=== PATIENT | female | born 1995 | race Caucasian/White ===

== ENCOUNTER 2020-08-07 00:32 | Emergency (ER) | payer OTHER, SELFPAY ==
--- NOTE | 2020-08-07 | ECG_ITS ---
Test Reason : CP Blood Pressure : / mmHG Vent. Rate : 071 BPM Atrial Rate : 071 BPM P-R Int : 194 ms QRS Dur : 084 ms QT Int : 402 ms P-R-T Axes : 045 035 050 degrees QTc Int : 436 ms Normal sinus rhythm Normal ECG When compared to the previous EKG of No significant changes seen Referred By: Anastasia Munoz Electronically Signed By:Arnold Daigle
--- NOTE | ~2020-08-07 | XR_ITS ---
EXAMINATION: XR CHEST CLINICAL INFORMATION: Chest pain COMPARISON: None TECHNIQUE: 2 views of the chest were obtained. FINDINGS: The lungs are well expanded. There is no focal consolidation, edema, or effusion. No pneumothorax. The cardiomediastinal silhouette is within normal limits. No acute osseous abnormality. XR/XR chest 2V IMPRESSION: No acute pulmonary finding.
[2020-08-07 00:46] VITALS: BP 108/70; BP 117/70; PULSE 75; PULSE 90; RESP 16; TEMP 37.1; O2SAT 99; BMI 31.3
--- NOTE | 2020-08-07 01:04 | ED.CHESTPAIN ---
HPI - Chest Pain General Chief Complaint: Chest Pain <TONYA Ruff Last Filed: 08/07/20 02:24> Stated Complaint: chest pain <TONYA Ruff Last Filed: 08/07/20 02:24> Time Seen by Provider: 08/07/20 00:50 <TONYA Ruff Last Filed: 08/07/20 02:24> Source: patient <TONYA Ruff Last Filed: 08/07/20 02:24> Mode of arrival: EMS <TONYA Ruff Last Filed: 08/07/20 02:24> Limitations: no limitations <TONYA Ruff Last Filed: 08/07/20 02:24> History of Present Illness HPI narrative: Patient is a 25-year-old female with no significant past medical history who called [employer] after having some chest pains, she was given 325 aspirin and sublingual nitro with no relief. She states she did cardio, abdominal and leg workout at the gym, left the gym around 17:30 and went to [facility] for dinner, had a salad, denies eating anything spicy or at of her normal habits, went home and started having chest pain. She describes the pain as a burning, states it does not radiate states that is constant but does fluctuate from a 6/10 to a 9/10. She states it is worse with movement but did not take anything to try to make it better. She states that similar to when you swallow food and it gets stuck in your chest . She denies an increase in anxiety over the past few days. She denies any shortness of breath, abdominal pain except for the pain from doing her abdominal workout, fevers, nausea vomiting or diarrhea. <TONYA Ruff Last Filed: 08/07/20 02:24> Related Data Allergies/Adverse Reactions: Allergies Allergy/AdvReac Type Severity Reaction Status Date / Time No Known Allergies Allergy Unverified 01/02/20 17:26 <TONYA Ruff Last Filed: 08/07/20 02:24> Review of Systems Review of Systems: Yes all other systems are reviewed and are negative <Deena Pitt PA-C - Last Filed: 08/07/20 02:24> [facility] Social History Social History: Social History Advance Directives: No <Deena Pitt PA-C - Last Filed: 08/07/20 02:24> Physical Exam Vital Signs: Vital Signs: Last Vital Signs Temp 98.7 F 08/07/20 00:46 Pulse 75 08/07/20 00:46 Resp 16 08/07/20 00:46 BP 108/70 08/07/20 00:46 Pulse Ox 99 08/07/20 00:46 Body Mass Index 31.3 <Deena Pitt PA-C - Last Filed: 08/07/20 02:24> Vital Signs: Last Vital Signs Temp 98.7 F 08/07/20 00:46 Pulse 75 08/07/20 00:46 Resp 16 08/07/20 00:46 BP 108/70 08/07/20 00:46 Pulse Ox 99 08/07/20 00:46 Body Mass Index 31.3 <Anastasia Munoz MD - Last Filed: 08/07/20 03:44> Const: General: cooperative, healthy appearing, comfortable and no acute distress <Deena Pitt PA-C - Last Filed: 08/07/20 02:24> Nutritional Appearance: average body habitus <Deena Pitt PA-C - Last Filed: 08/07/20 02:24> Orientation/consciousness: patient oriented x3 <Deena Pitt PA-C - Last Filed: 08/07/20 02:24> HENMT: Head: Yes normal to inspection <Deena Pitt PA-C - Last Filed: 08/07/20 02:24> Eyes: General: appearance normal, both eyes and all related structures <Deena Pitt PA-C - Last Filed: 08/07/20 02:24> Neck: Neck: Yes normal visual inspection, Yes full ROM, Yes trachea midline and Yes supple <Deena Pitt PA-C - Last Filed: 08/07/20 02:24> Chest: Chest palpation & inspection: normal inspection of the chest and normal palpation of entire chest wall <Deena Pitt PA-C - Last Filed: 08/07/20 02:24> Resp: Effort & Inspection: normal respiratory effort and able to speak in complete sentences <Deena Pitt PA-C Ree Last Filed: 08/07/20 02:24> Auscultation: clear to auscultation bilaterally <Deena Pitt PA-C Ree Last Filed: 08/07/20 02:24> Cardio: Rate: regular rate <Deena Pitt PA-C Ree Last Filed: 08/07/20 02:24> Rhythm: regular rhythm <Deena Pitt PA-C Ree Last Filed: 08/07/20 02:24> Heart sounds: normal S1 and S2 <Deena Pitt PA-C Ree Last Filed: 08/07/20 02:24> GI: Inspection: Yes normal to inspection <Deena Pitt PA-C Ree Last Filed: 08/07/20 02:24> Palpation (GI): Soft to palpation and Tenderness to palpation present (GI) in the epigastrum <Deena Pitt PA-C Ree Last Filed: 08/07/20 02:24> Skin: General skin exam: no rashes or lesions noted <Deena Pitt PA-C Ree Last Filed: 08/07/20 02:24> Neuro: General: patient oriented x3 <Deena Pitt PA-C Ree Last Filed: 08/07/20 02:24> Course Course Course Narrative: Patient is a 25 old female with no significant past medical history who presents with a few hours of chest pain after doing a cardio, leg and abdominal workout this evening then going to get some dinner. Physical exam revealed Chest pain is not reproducible, EKG is NSR. Will get labs, chest x-ray give a GI cocktail and reassess. <Deena Pitt PA-C Ree Last Filed: 08/07/20 02:24> Patient re-evaluated at bedside and she endorses that the pain is still there somewhat, however it has significantly improved after receiving the GI cocktail. On review of family history and history of presentation low clinical suspicion for pneumonia, cardiac or hypercoagulable etiologies. All investigations were reviewed without acute findings. All results and findings discussed with the patient at bedside and she was discharged to home in stable condition. <Anastasia Munoz MD - Last Filed: 08/07/20 03:44> Reevaluation(s) Reevaluation #1: signing out pt to Dr Munoz <Deena Pitt PA-C - Last Filed: 08/07/20 02:24> Time: 02:24 <Deena Pitt PA-C - Last Filed: 08/07/20 02:24> MDM - Chest Pain Lab Data Result diagrams: : 08/07/20 02:02 08/07/20 02:02 <Deena Pitt PA-C - Last Filed: 08/07/20 02:24> Labs: Lab Results 08/07/20 08/07/20 08/07/20 Range/Units 02:02 02:02 Unknown WBC 7.8 (4.8-10.8) X10*3/uL RBC 4.26 (4.20-5.50) X10*6/uL Hgb 12.5 (12.0-16.0) g/dl Hct 37.4 (37-47) % MCV 87.8 (80-98) fL MCH 29.3 (27.0-33.0) pg MCHC 33.4 (31.0-35.0) g/dl RDW 12.3 (11.0-16.0) % Plt Count 316 (160-400) X10*3/uL MPV 9.0 L (9.4-12.3) fL Immature Gran % (Auto) 0.1 (0.0-0.4) % Neut % (Auto) 36.3 L (45-73) % Lymph % (Auto) 51.6 H (20-40) % [place] % (Auto) 6.8 (2-11) % Eos % (Auto) 4.1 H (0-4) % Baso % (Auto) 1.1 (0-2) % Lymph # (Auto) 4.0 (1.2-4.9) X10*3/uL [place] # (Auto) 0.5 (0.1-1.2) X10*3/uL Eos # (Auto) 0.3 (0.0-0.4) X10*3/uL Baso # (Auto) 0.1 (0.0-0.2) X10*3/uL Abs Immat Gran (auto) 0.01 (0.00-0.03) X10*3/uL Absolute Neuts (auto) 2.8 (2.0-8.3) X10*3/uL Absolute Nucleated RBC 0.000 (0.0-0.012) X10*3/uL Nucleated RBC % (auto) 0.0 (0.0-0.2) /100WBC Sodium 139 (135-145) mmol/L Potassium 3.7 (3.3-5.1) mmol/L Chloride 107 (96-108) mmol/L Carbon Dioxide 22 (22-29) mmol/L Anion Gap 14 (12-20) BUN 13 (9-16) mg/dL Creatinine 0.70 (0.5-1.4) mg/dL Estim Creat Clear Calc 105.7 Estimated GFR > 60 Random Glucose 86 (60-115) mg/dL Calcium 9.4 (8.4-10.2) mg/dL Total Bilirubin 0.6 (0.0-1.0) mg/dL Direct Bilirubin 0.2 (0.0-0.5) mg/dL AST 27 (5-31) U/L ALT 16 (0-31) U/L Alkaline Phosphatase 44 (39-117) U/L Total Protein 6.7 (6.5-8.0) g/dL Albumin 4.4 (3.5-5.0) g/dL Lipase 25 (8-78) U/L Urine Test NEGATIVE (NEGATIVE) <Deena Pitt PA-C - Last Filed: 08/07/20 02:24> Lab Results 08/07/20 08/07/20 08/07/20 Range/Units 02:02 02:02 Unknown WBC 7.8 (4.8-10.8) X10*3/uL RBC 4.26 (4.20-5.50) X10*6/uL Hgb 12.5 (12.0-16.0) g/dl Hct 37.4 (37-47) % MCV 87.8 (80-98) fL MCH 29.3 (27.0-33.0) pg MCHC 33.4 (31.0-35.0) g/dl RDW 12.3 (11.0-16.0) % Plt Count 316 (160-400) X10*3/uL MPV 9.0 L (9.4-12.3) fL Immature Gran % (Auto) 0.1 (0.0-0.4) % Neut % (Auto) 36.3 L (45-73) % Lymph % (Auto) 51.6 H (20-40) % [place] % (Auto) 6.8 (2-11) % Eos % (Auto) 4.1 H (0-4) % Baso % (Auto) 1.1 (0-2) % Lymph # (Auto) 4.0 (1.2-4.9) X10*3/uL [place] # (Auto) 0.5 (0.1-1.2) X10*3/uL Eos # (Auto) 0.3 (0.0-0.4) X10*3/uL Baso # (Auto) 0.1 (0.0-0.2) X10*3/uL Abs Immat Gran (auto) 0.01 (0.00-0.03) X10*3/uL Absolute Neuts (auto) 2.8 (2.0-8.3) X10*3/uL Absolute Nucleated RBC 0.000 (0.0-0.012) X10*3/uL Nucleated RBC % (auto) 0.0 (0.0-0.2) /100WBC Sodium 139 (135-145) mmol/L Potassium 3.7 (3.3-5.1) mmol/L Chloride 107 (96-108) mmol/L Carbon Dioxide 22 (22-29) mmol/L Anion Gap 14 (12-20) BUN 13 (9-16) mg/dL Creatinine 0.70 (0.5-1.4) mg/dL Estim Creat Clear Calc 105.7 Estimated GFR > 60 Random Glucose 86 (60-115) mg/dL Calcium 9.4 (8.4-10.2) mg/dL Total Bilirubin 0.6 (0.0-1.0) mg/dL Direct Bilirubin 0.2 (0.0-0.5) mg/dL AST 27 (5-31) U/L ALT 16 (0-31) U/L Alkaline Phosphatase 44 (39-117) U/L Total Protein 6.7 (6.5-8.0) g/dL Albumin 4.4 (3.5-5.0) g/dL Lipase 25 (8-78) U/L Urine Test NEGATIVE (NEGATIVE) <Anastasia Munoz MD - Last Filed: 08/07/20 03:44> Imaging Data Chest x-ray: Attestation: I personally reviewed and interpreted this imaging study as follows: <Deena Pitt PA-C - Last Filed: 08/07/20 02:24> My impression: No acute pulmonary finding. <Deena Pitt PA-C - Last Filed: 08/07/20 02:24> Radiologist's impression: [address] [id number] ReportSigned Patient: Mera MistryMR#: [id number]: [id number]:[id number]/Sex: 25 / FADM Date: 08/07/20Loc: HO.EDAttending Dr: Ordering Physician: Deena Pitt PA-C Date of Service: 08/07/20 Procedure(s): XR chest 2V Accession Number(s): [id number] cc: Deena Pitt PA-C~ EXAMINATION: XR CHEST CLINICAL INFORMATION: Chest pain COMPARISON: None TECHNIQUE: 2 views of the chest were obtained. FINDINGS: The lungs are well expanded. There is no focal consolidation, edema, or effusion. No pneumothorax. The cardiomediastinal silhouette is within normal limits. No acute osseous abnormality. XR/XR chest 2V IMPRESSION: No acute pulmonary finding. Dictated By:Rony Desouza MDSigned By:<Electronically signed by Rony Desouza MD in OV>08/07/20 0124 DD/ 0109TD/TT: Criminal Investigative Agent: SUSHILA <Deena Pitt PA-C - Last Filed: 08/07/20 02:24> Discharge Plan Discharge Clinical Impression: Atypical chest pain <Deena Pitt PA-C - Last Filed: 08/07/20 02:24> Patient Disposition: Home, Self-Care <Deena Pitt PA-C - Last Filed: 08/07/20 02:24> Instructions: Chest Pain (ED), Gastroesophageal Reflux Disease (ED), Diet for Stomach Ulcers and Gastritis (ED) <Deena Pitt PA-C - Last Filed: 08/07/20 02:24> Additional Instructions: Do not hesitate to return to the emergency department should you develop any acute worsening of your symptoms. <Deena Pitt PA-C - Last Filed: 08/07/20 02:24> Referrals: Yanelis Marques MD [Primary Care Provider] - 2 days (Re-evaluation after seen in the emergency department for atypical chest pain evaluation for any cardiopulmonary etiologies was negative.) <Deena Pitt PA-C - Last Filed: 08/07/20 02:24>
[2020-08-07] MEDS: Omeprazole 40 MG CAPSULE.DR PO (01:45)
[2020-08-07] MEDS: Lidocaine HCl Viscous 2 % 15 ML SOLUTION MUCOUS MEM (01:45)
[2020-08-07] MEDS: Magnesium Hydrox/Alum Hydrox 30 ML ORAL.SUSP PO (01:46)
[2020-08-07 02:01] LABS: UPreg QC Valid YES; Urine Pregnancy NEGATIVE (NEGATIVE)
[2020-08-07 02:07] LABS: Basophils Absolute Auto 0.1 X10*3/uL (0.0-0.2); Basophils Percent Auto 1.1 % (0-2); Eosinophils Absolute Auto 0.3 X10*3/uL (0.0-0.4); Eosinophils Percent Auto 4.1 % (0-4); Hematocrit 37.4 % (37-47); Hemoglobin 12.5 g/dl (12.0-16.0); Imm Gran Abs Auto 0.01 X10*3/uL (0.00-0.03); Imm Gran Pct Auto 0.1 % (0.0-0.4); Lymphocytes Percent Auto 51.6 % (20-40); MANUAL DIFF FLAG NO; Mean Corpuscular HGB Conc 33.4 g/dl (31.0-35.0); Mean Corpuscular Hemoglobin 29.3 pg (27.0-33.0); Mean Corpuscular Volume 87.8 fL (80-98); Monocytes Absolute Auto 0.5 X10*3/uL (0.1-1.2); Monocytes Percent Auto 6.8 % (2-11); Neutrophils Absolute Auto 2.8 X10*3/uL (2.0-8.3); Neutrophils Percent Auto 36.3 % (45-73); Platelet Count 316 X10*3/uL (160-400); Red Blood Count 4.26 X10*6/uL (4.20-5.50); Red Cell Distribution Width 12.3 % (11.0-16.0); White Blood Count 7.8 X10*3/uL (4.8-10.8)
[2020-08-07 02:31] LABS: Alanine Aminotransferase 16 U/L (0-31); Albumin Level 4.4 g/dL (3.5-5.0); Alkaline Phosphatase 44 U/L (39-117); Anion Gap 14 (12-20); Aspartate Amino Transferase 27 U/L (5-31); Bilirubin Direct 0.2 mg/dL (0.0-0.5); Bilirubin Total 0.6 mg/dL (0.0-1.0); Blood Urea Nitrogen 13 mg/dL (9-16); Calcium 9.4 mg/dL (8.4-10.2); Carbon Dioxide 22 mmol/L (22-29); Chloride 107 mmol/L (96-108); Creatinine Clr Calc Pharmacy 105.7; Estimated Glomerular Filt Rate > 60; Glucose Random 86 mg/dL (60-115); Lipase 25 U/L (8-78); Potassium 3.7 mmol/L (3.3-5.1); Sodium 139 mmol/L (135-145); Total Protein 6.7 g/dL (6.5-8.0)
[2020-08-07 03:46] VITALS: BP 99/67; PULSE 65; RESP 18; O2SAT 99
== END 2020-08-07 03:53 | disposition home or self-care (01) ==
PROVIDERS: Physician Assistant; Emergency Provider Student in an Organized Health Care Education/Training Program; PCP Internal Medicine
DX: R07.9 Chest pain, unspecified (principal)
CPT/HCPCS: 36415; 71046; 80048; 80076; 81025; 83690; 85025; 93005; 99283; 99284

== ENCOUNTER 2020-09-05 06:04 | Emergency (ER) | payer OTHER, SELFPAY ==
--- NOTE | ~2020-09-05 | US_ITS ---
EXAMINATION: ULTRASOUND PELVIC TRANSABDOMINAL AND TRANSVAGINAL COMPLETE CLINICAL INFORMATION: Right lower quadrant/suprapubic pain. COMPARISON: CT scan of the abdomen and pelvis from today, pelvic ultrasound dated 10/31/2018. TECHNIQUE: Multiple 2-D keller scale transabdominal/transvaginal pelvic ultrasound images with Doppler were obtained. FINDINGS: Uterus: Anteverted/retroflexed measuring 10.0 x 4.1 x 5.3 cm. Endometrial thickness measures up to 0.9 cm without focal abnormality. The cervix is closed measuring approximately 3 cm in length without focal abnormality. No significant free fluid in the cul-de-sac. Right ovary: 2.7 x 2.1 x 1.7 cm with a volume of 5.1 mL. Doppler showed no abnormality. Left ovary: 3.0 x 1.6 x 1.6 cm with a volume of 4 mL. Doppler showed no abnormality. Urinary bladder: Moderately distended without focal abnormality. US/US pelvic and transvaginal IMPRESSION: Unremarkable pelvic ultrasound.
--- NOTE | ~2020-09-05 | CT_ITS ---
EXAMINATION: CT ABDOMEN AND PELVIS WITH CONTRAST CLINICAL INFORMATION: Right lower quadrant abdominal pain, nausea and vomiting, left lower quadrant tenderness to palpation. COMPARISON: CT abdomen pelvis and pelvic ultrasound 10/31/2018 TECHNIQUE: Multidetector volumetric images were obtained from the superior aspect of the liver through the pubic symphysis following administration 85 mL of Omnipaque 350 intravenous contrast. Sagittal and coronal reformatted images were obtained on the technologist's workstation. Oral contrast: No This CT examination was performed using dose optimization techniques as appropriate, variously including the following: *Automated exposure control *Adjustment of mA and/or kV according to patient size (this includes techniques or standardized protocols for targeted exams where dose is matched to indication/reason for exam; i.e. extremities or head) *Use of iterative reconstruction technique DLP: 529 mGy-cm FINDINGS: LUNG BASES: The visualized lung bases are unremarkable. LIVER, GALLBLADDER, AND BILIARY TREE: The liver is normal in size, shape, and attenuation. No focal hepatic lesion or biliary ductal dilatation is present. Incidental accessory right hepatic vein drains directly into the IVC. The gallbladder is unremarkable with no evidence of radiopaque gallstones, gallbladder wall thickening, or obvious pericholecystic inflammatory changes. PANCREAS: Unremarkable. SPLEEN: Unremarkable. ADRENAL GLANDS: Unremarkable. KIDNEYS AND URETERS: The kidneys are normal in size, shape, and attenuation. No hydronephrosis, hydroureter, or calculi seen. No perinephric stranding. BLADDER: Unremarkable. GASTROINTESTINAL TRACT: The small and large bowel are unremarkable. The appendix is unremarkable. No underlying colonic thickening or fluid collections or bowel obstruction. ABDOMINAL WALL: No significant hernia is appreciated. LYMPH NODES: No evidence of retroperitoneal adenopathy. Small mesenteric lymph nodes are seen. VASCULAR: Unremarkable. PELVIC VISCERA: The uterus and adnexa are unremarkable. Trace free fluid is seen in the pelvis. OSSEOUS STRUCTURES: Intraosseous gas is seen in the left iliac bone adjacent to the SI joint, chronic. CT/CT abdomen pelvis w con IMPRESSION: No evidence of bowel obstruction, thickened bowel loops or appendicitis. No cause is demonstrated to explain the patient's symptomatology.
[2020-09-05 06:24] VITALS: BP 112/71; PULSE 69; RESP 18; TEMP 35.9; O2SAT 99; BMI 34.0
[2020-09-05 08:20] VITALS: BP 115/71; PULSE 73; RESP 16; O2SAT 100
[2020-09-05 08:35] LABS: Glucose Urine UA NEG (NEG); Leukocyte Esterase Urine NEG (NEG); Nitrite Urine NEG (NEG); Specific Gravity - Urine 1.025 (1.005-1.025); Urine Blood NEG (NEG); Urine Ketones NEG (NEG); Urine Protein NEG (NEG-TRACE)
[2020-09-05 08:38] LABS: Appearance Urine CLEAR; Color Urine YELLOW
--- NOTE | 2020-09-05 08:46 | ED.ABDPAIN ---
HPI - Abdominal Pain General Chief Complaint: Abdominal Pain Stated Complaint: abdominal pain, vomiting Time Seen by Provider: 09/05/20 08:37 Source: patient Mode of arrival: ambulatory History of Present Illness HPI narrative: 25-year-old female with no significant past medical history presenting to the ED complaining of epigastric and RLQ abdominal pain since last night with nausea and vomiting greater than 10x. Reports pain radiates to back. Also reports constipation last BM a couple days ago. Denies fever, chills, diarrhea, dysuria/hematuria, vaginal bleeding/discharge MD elicited complaint: abdominal pain Related Data Previous Rx's Medication Instructions Recorded alum-mag hydroxide-simeth [Maalox 5 ml PO 5XD PRN #3000 ml 09/05/20 Advanced] ondansetron HCl [Zofran] 4 mg PO Q8H PRN #10 tab 09/05/20 Allergies Allergy/AdvReac Type Severity Reaction Status Date / Time No Known Allergies Allergy Unverified 01/02/20 17:26 Review of Systems Review of Systems Constitutional: No Fever, No Chills Cardiovascular: No Chest Pain, No SOB Respiratory: No Cough, No Dyspnea Gastrointestinal: + Nausea, + Vomiting, No Diarrhea, + Constipation, + Abdominal pain Genitourinary: No Dysuria, No Urinary Frequency, No Hematuria, No Flank Pain, No vaginal bleeding or vaginal discharge Musculoskeletal: No joint pain, No Myalgias, No Joint Swelling Skin: No Skin Lesions, No rash Yes all other systems are reviewed and are negative Physical Exam Vital Signs: Vital Signs: Last Vital Signs Temp 98.3 F 09/05/20 15:53 Pulse 70 09/05/20 15:53 Resp 14 09/05/20 15:53 BP 110/62 09/05/20 15:53 Pulse Ox 100 09/05/20 15:53 Body Mass Index 34.0 Const: General: cooperative and healthy appearing Orientation/consciousness: patient oriented x3 Limitations: no limitations HENMT: Head: Yes normal to inspection and Yes atraumatic Ears: hearing grossly normal bilaterally General nose exam: Normal external nose present Face and sinus: Yes normal facial exam Eyes: General: appearance normal, both eyes and all related structures EOM: EOMs intact bilaterally Neck: Neck: Yes normal visual inspection Resp: Effort & Inspection: normal respiratory effort Cardio: Rate: regular rate GI: Inspection: Yes normal to inspection Palpation (GI): Soft to palpation, Tenderness to palpation present (GI) in the LLQ and in the RLQ; with no rebound tenderness, no guarding and not rigid : General: Yes no CVA tenderness Back/Spine/Pelvis: Back: no CVA tenderness Skin: Rashes: no rashes Wounds: no wounds Neuro: General: patient oriented x3 Gait exam (Neuro): Normal gait present Extrem: General: Yes normal to inspection Course Course Course Narrative: -No leukocytosis, labs otherwise unremarkable, UA negative 1422-- CT abdomen pelvis w con IMPRESSION: No evidence of bowel obstruction, thickened bowel loops or appendicitis. No cause is demonstrated to explain the patient's symptomatology. >> on re-evaluation patient is still significantly tender in the right lower quadrant/suprapubic region. With shared decision making we will obtain pelvic ultrasound vs watchful waiting 1634-- US pelvic and transvaginal IMPRESSION: Unremarkable pelvic ultrasound >> results discussed with patient. Tolerated p.o. zack dai and saltines in the ED without nausea or vomiting. Worrisome signs and symptoms and strict return precautions discussed, she verbalized understanding feel safe for discharge home MDM - Abdominal Pain MDM Narrative Medical decision making narrative: 25-year-old female with no significant past medical history presenting to the ED complaining of epigastric and RLQ abdominal pain since last night with nausea and vomiting greater than 10x. On exam VSS, NAD/well appearing, abdomen soft with RLQ and LLQ tto >R, no rebound or guarding, no CVAT. Concern for appendicitis vs diverticulitis vs renal stone. Lower concern for ovarian torsion, cyst or STI/PID/TOA Plan: Labs, UA, CT AP, IVF, antiemetics, reassess Medical Records Attestation: I reviewed the patient's medical records. Lab Data Attestation: I reviewed the patient's lab results. Result diagrams: 09/05/20 08:58 09/05/20 08:58 Labs: Lab Results 09/05/20 09/05/20 09/05/20 Range/Units 08:26 08:26 08:58 WBC 9.3 (4.8-10.8) X10*3/uL RBC 4.44 (4.20-5.50) X10*6/uL Hgb 13.2 (12.0-16.0) g/dl Hct 39.0 (37-47) % MCV 87.8 (80-98) fL MCH 29.7 (27.0-33.0) pg MCHC 33.8 (31.0-35.0) g/dl RDW 12.4 (11.0-16.0) % Plt Count 348 (160-400) X10*3/uL MPV 9.5 (9.4-12.3) fL Immature Gran % (Auto) 0.2 (0.0-0.4) % Neut % (Auto) 58.5 (45-73) % Lymph % (Auto) 31.2 (20-40) % [place] % (Auto) 6.8 (2-11) % Eos % (Auto) 2.1 (0-4) % Baso % (Auto) 1.2 (0-2) % Lymph # (Auto) 2.9 (1.2-4.9) X10*3/uL [place] # (Auto) 0.6 (0.1-1.2) X10*3/uL Eos # (Auto) 0.2 (0.0-0.4) X10*3/uL Baso # (Auto) 0.1 (0.0-0.2) X10*3/uL Abs Immat Gran (auto) 0.02 (0.00-0.03) X10*3/uL Absolute Neuts (auto) 5.5 (2.0-8.3) X10*3/uL Absolute Nucleated RBC 0.000 (0.0-0.012) X10*3/uL Nucleated RBC % (auto) 0.0 (0.0-0.2) /100WBC Hold Blue Top Sodium (135-145) mmol/L Potassium (3.3-5.1) mmol/L Chloride (96-108) mmol/L Carbon Dioxide (22-29) mmol/L Anion Gap (12-20) BUN (9-16) mg/dL Creatinine (0.5-1.4) mg/dL Estim Creat Clear Calc Estimated GFR Random Glucose (60-115) mg/dL Calcium (8.4-10.2) mg/dL Magnesium (1.6-2.6) mg/dL Total Bilirubin (0.0-1.0) mg/dL Direct Bilirubin (0.0-0.5) mg/dL AST (5-31) U/L ALT (0-31) U/L Alkaline Phosphatase (39-117) U/L Total Protein (6.5-8.0) g/dL Albumin (3.5-5.0) g/dL Lipase (8-78) U/L Urine Color YELLOW Urine Appearance CLEAR Urine pH 6.0 (5.0-8.0) Ur Specific [place] 1.025 (1.005-1.025) Urine Protein NEG (NEG-TRACE) MG/DL Urine Glucose (UA) NEG (NEG) MG/DL Urine Ketones NEG (NEG) MG/DL Urine Blood NEG (NEG) Urine Nitrite NEG (NEG) Ur Leukocyte Esterase NEG (NEG) Urine Test NEGATIVE (NEGATIVE) 09/05/20 09/05/20 Range/Units 08:58 08:58 WBC (4.8-10.8) X10*3/uL RBC (4.20-5.50) X10*6/uL Hgb (12.0-16.0) g/dl Hct (37-47) % MCV (80-98) fL MCH (27.0-33.0) pg MCHC (31.0-35.0) g/dl RDW (11.0-16.0) % Plt Count (160-400) X10*3/uL MPV (9.4-12.3) fL Immature Gran % (Auto) (0.0-0.4) % Neut % (Auto) (45-73) % Lymph % (Auto) (20-40) % [place] % (Auto) (2-11) % Eos % (Auto) (0-4) % Baso % (Auto) (0-2) % Lymph # (Auto) (1.2-4.9) X10*3/uL [place] # (Auto) (0.1-1.2) X10*3/uL Eos # (Auto) (0.0-0.4) X10*3/uL Baso # (Auto) (0.0-0.2) X10*3/uL Abs Immat Gran (auto) (0.00-0.03) X10*3/uL Absolute Neuts (auto) (2.0-8.3) X10*3/uL Absolute Nucleated RBC (0.0-0.012) X10*3/uL Nucleated RBC % (auto) (0.0-0.2) /100WBC Hold Blue Top SEE NOTE Sodium 140 (135-145) mmol/L Potassium 3.9 (3.3-5.1) mmol/L Chloride 107 (96-108) mmol/L Carbon Dioxide 27 (22-29) mmol/L Anion Gap 10 L (12-20) BUN 10 (9-16) mg/dL Creatinine 0.64 (0.5-1.4) mg/dL Estim Creat Clear Calc 120.8 Estimated GFR > 60 Random Glucose 84 (60-115) mg/dL Calcium 9.8 (8.4-10.2) mg/dL Magnesium 2.0 (1.6-2.6) mg/dL Total Bilirubin 0.5 (0.0-1.0) mg/dL Direct Bilirubin 0.2 (0.0-0.5) mg/dL AST 14 D (5-31) U/L ALT 11 (0-31) U/L Alkaline Phosphatase 49 (39-117) U/L Total Protein 6.9 (6.5-8.0) g/dL Albumin 4.4 (3.5-5.0) g/dL Lipase 25 (8-78) U/L Urine Color Urine Appearance Urine pH (5.0-8.0) Ur Specific [place] (1.005-1.025) Urine Protein (NEG-TRACE) MG/DL Urine Glucose (UA) (NEG) MG/DL Urine Ketones (NEG) MG/DL Urine Blood (NEG) Urine Nitrite (NEG) Ur Leukocyte Esterase (NEG) Urine Test (NEGATIVE) Discharge Plan Discharge Clinical Impression: Abdominal pain Qualifiers: Abdominal location: right lower quadrant Qualified Code(s): R10.31 - Right lower quadrant pain Nausea & vomiting Qualifiers: Vomiting type: unspecified Vomiting Intractability: non-intractable Qualified Code(s): R11.2 - Nausea with vomiting, unspecified Patient Disposition: Home, Self-Care Instructions: Acute Nausea and Vomiting (ED), Abdominal Pain (ED) Additional Instructions: Your blood work and imaging studies were reassuring today in the emergency department Zofran is antinausea medication, take as needed Maalox will help with your abdominal discomfort/acid buildup It is important for you to stay hydrated at, make sure drinking plenty of fluids If her symptoms persist or worsen, pain becomes more constant/unbearable, you are unable to eat or drink please return to the ED Otherwise follow-up with your doctor Prescriptions: New ondansetron HCl [Zofran] 4 mg tablet 4 mg PO Q8H PRN (Reason: nausea and vomiting) Qty: 10 RF: 0 alum-mag hydroxide-simeth [Maalox Advanced] 200-200-20 mg/5 mL suspension 5 ml PO 5XD PRN (Reason: indigestion) Qty: 3000 RF: 0 Referrals: Yanelis Marques MD [Primary Care Provider] - 3 days PMF Past Medical History Attestation statement: The following information was validated with the patient. Social History Social History Advance Directives: No Advance Directives Information Provided: No Patient : No
[2020-09-05 09:05] LABS: MANUAL DIFF FLAG NO
[2020-09-05 09:06] LABS: Basophils Absolute Auto 0.1 X10*3/uL (0.0-0.2); Basophils Percent Auto 1.2 % (0-2); Eosinophils Absolute Auto 0.2 X10*3/uL (0.0-0.4); Eosinophils Percent Auto 2.1 % (0-4); Hemoglobin 13.2 g/dl (12.0-16.0); Imm Gran Abs Auto 0.02 X10*3/uL (0.00-0.03); Imm Gran Pct Auto 0.2 % (0.0-0.4); Lymphocytes Absolute Auto 2.9 X10*3/uL (1.2-4.9); Lymphocytes Percent Auto 31.2 % (20-40); Mean Corpuscular HGB Conc 33.8 g/dl (31.0-35.0); Mean Corpuscular Hemoglobin 29.7 pg (27.0-33.0); Mean Corpuscular Volume 87.8 fL (80-98); Mean Platelet Volume 9.5 fL (9.4-12.3); Monocytes Absolute Auto 0.6 X10*3/uL (0.1-1.2); Monocytes Percent Auto 6.8 % (2-11); Neutrophils Absolute Auto 5.5 X10*3/uL (2.0-8.3); Neutrophils Percent Auto 58.5 % (45-73); Platelet Count 348 X10*3/uL (160-400); Red Blood Count 4.44 X10*6/uL (4.20-5.50); Red Cell Distribution Width 12.4 % (11.0-16.0); White Blood Count 9.3 X10*3/uL (4.8-10.8)
[2020-09-05] MEDS: ondansetron HCL 4 MG/2 ML VIAL IVPUSH (09:06)
[2020-09-05] MEDS: 0.9 % Sodium Chloride 1,000 ML 999 ML IVCONT (09:07)
[2020-09-05] MEDS: levETIRAcetam 500 MG TABLET 750 MG PO (09:25)
[2020-09-05 09:29] LABS: Alanine Aminotransferase 11 U/L (0-31); Albumin Level 4.4 g/dL (3.5-5.0); Alkaline Phosphatase 49 U/L (39-117); Anion Gap 10 (12-20); Aspartate Amino Transferase 14 U/L (5-31); Bilirubin Direct 0.2 mg/dL (0.0-0.5); Bilirubin Total 0.5 mg/dL (0.0-1.0); Blood Urea Nitrogen 10 mg/dL (9-16); Calcium 9.8 mg/dL (8.4-10.2); Carbon Dioxide 27 mmol/L (22-29); Chloride 107 mmol/L (96-108); Creatinine Clr Calc Pharmacy 120.8; Estimated Glomerular Filt Rate > 60; Glucose Random 84 mg/dL (60-115); Lipase 25 U/L (8-78); Potassium 3.9 mmol/L (3.3-5.1); Sodium 140 mmol/L (135-145); Total Protein 6.9 g/dL (6.5-8.0)
[2020-09-05 11:48] LABS: UPreg QC Valid YES; Urine Pregnancy NEGATIVE (NEGATIVE)
[2020-09-05 13:22] VITALS: BP 110/71; PULSE 67; RESP 16; TEMP 35.8; O2SAT 100
[2020-09-05] MEDS: iohexoL 350 MG/ML 100 ML INFUS..BTL IV (13:23)
[2020-09-05 15:53] VITALS: BP 110/62; PULSE 70; RESP 14; TEMP 36.8; O2SAT 100
== END 2020-09-05 17:06 | disposition home or self-care (01) ==
PROVIDERS: Physician Assistant; Emergency Provider Emergency Medicine; PCP Internal Medicine
DX: R10.31 Right lower quadrant pain (principal); R11.2 Nausea with vomiting, unspecified
CPT/HCPCS: 36415; 74177; 76830; 76856; 80048; 80076; 81003; 81025; 83690; 83735; 85025; 96361; 96374; 99284; J2405; Q9967

== ENCOUNTER 2020-12-07 01:57 | Emergency (ER) | payer OTHER, SELFPAY ==
[2020-12-07 02:09] VITALS: BP 100/63; PULSE 77; RESP 18; TEMP 36.9; O2SAT 100; BMI 31.3
[2020-12-07 02:50] VITALS: BP 103/63; PULSE 82; RESP 16; TEMP 36.8; O2SAT 99
[2020-12-07 03:00] LABS: UPreg QC Valid YES; Urine Pregnancy POSITIVE (NEGATIVE)
[2020-12-07 03:01] LABS: Glucose Urine UA NEG (NEG); Leukocyte Esterase Urine NEG (NEG); Nitrite Urine NEG (NEG); PH 7.5 (5.0-8.0); Urine Blood NEG (NEG); Urine Ketones NEG (NEG); Urine Protein NEG (NEG-TRACE)
[2020-12-07 03:03] LABS: Appearance Urine CLEAR; Color Urine YELLOW; UACC Culture Trigger NO
--- NOTE | 2020-12-07 03:38 | ED_ITS ---
HPI - Abdominal Pain General Chief Complaint: Abdominal Pain Stated Complaint: abd pain 4 weeks Time Seen by Provider: 12/07/20 03:32 Source: patient Mode of arrival: ambulatory Limitations: no limitations History of Present Illness HPI narrative: Patient comes to the emergency room complaining of suprapubic pain. Patient states that she is approximately 4 weeks by last menstrual period. Patient states she is a . Patient states she has history of miscarriage at 5 weeks, which occurred approximately 6 weeks ago. Patient denies vaginal fluid leakage, no spotting, no bleeding. Related Data Previous Rx's Medication Instructions Recorded aluminum-mag hydroxide-simethicone 5 ml PO 5XD PRN #3000 ml 09/05/20 200 mg-200 mg-20 mg/5 mL oral susp (Maalox Advanced) ondansetron HCl 4 mg tablet 4 mg PO Q8H PRN #10 tab 09/05/20 (Zofran) acetaminophen 500 mg tablet 500 mg PO Q6H PRN #20 tab 12/07/20 Allergies Allergy/AdvReac Type Severity Reaction Status Date / Time No Known Allergies Allergy Verified 12/07/20 02:09 Review of Systems Review of Systems Constitutional : No Weight loss, No Fever, No Chills, No Night Sweats, No Fatigue, No Malaise ENT/Mouth : No Hearing loss, No Ear Pain, No Nasal Congestion, No Sinus Pain, No Hoarseness, No sore throat, No Rhinorrhea, No Swallowing Difficulty Eyes: No Eye Pain, No Swelling, No Redness, No Foreign Body, No Discharge, No Vision Changes Cardiovascular : No Chest Pain, No SOB, No Dyspnea on Exertion, No Orthopnea, No Edema, No Palpitations Respiratory : No Cough, No Sputum, No Wheezing, No Smoke Exposure, No Dyspnea Gastrointestinal : No Nausea, No Vomiting, No Diarrhea, No Constipation, complaining of suprapubic pain No Hematochezia, No Melena Genitourinary : no irregular bleeding, No Dysuria, No Urinary Frequency, No Hematuria, No Urinary Incontinence, No Urgency, No Flank Pain, No Urinary Flow Changes, No Hesitancy Musculoskeletal : No joint pain, No Myalgias, No Joint Swelling Skin : No Skin Lesions, No rash Neuro : No Weakness, No Numbness, No Paresthesias, No Loss of Consciousness, No Dizziness, No Headache Psych : No Anxiety/Panic, No Depression, No SI/HI/AH/VH, No Social Issues, Heme/Lymph: No Bruising, No Bleeding,No Lymphadenopathy Endocrine : No Polyuria, No Polydipsia, No Temperature Intolerance Physical Exam Vital Signs: Vital Signs: Last Vital Signs Temp 98.2 F 12/07/20 02:50 Pulse 82 12/07/20 02:50 Resp 16 12/07/20 02:50 BP 103/63 12/07/20 02:50 Pulse Ox 99 12/07/20 02:50 Body Mass Index 31.3 Const: Other: Appearance: Alert. Oriented X3. No acute distress. Eyes: Pupils equal, round and reactive to light. ENT: Pharynx normal. Neck: Normal inspection. Neck supple. No lymph nodes noted. No crepitus CVS: Normal heart rate and rhythm. Pulses normal. Normal S1 and S2 Respiratory: No respiratory distress. Breath sounds normal. No Wheezing. No rales Abdomen: Soft , mild suprapubic discomfort to deep palpation No rigidity. No distention. good BS x4 Skin: Skin warm and dry. Normal skin color. Normal skin turgor. Extremities: No lower extremity edema. no Lacerations. No Rash Neuro: Oriented X 3. No motor deficit. No sensory deficit. Moving all extermities. No slurred speech. Course Course Course Narrative: Patient was given a dose of Tylenol. Patient states that overall she does feel much better. Patient's urine test positive, hCG done positive, the is between 4-6 weeks. Patient will follow-up with the primary care physician. Patient not vomiting, cramping. Patient states that she really has an OBGYN appointment. Already on care. MDM - Abdominal Pain Lab Data Result diagrams: 12/07/20 04:09 12/07/20 04:09 Labs: Lab Results 12/07/20 12/07/20 12/07/20 Range/Units 02:55 02:55 04:09 WBC 9.0 (4.8-10.8) X10*3/uL RBC 4.20 (4.20-5.50) X10*6/uL Hgb 12.5 (12.0-16.0) g/dl Hct 36.7 L (37-47) % MCV 87.4 (80-98) fL MCH 29.8 (27.0-33.0) pg MCHC 34.1 (31.0-35.0) g/dl RDW 12.4 (11.0-16.0) % Plt Count 330 (160-400) X10*3/uL MPV 9.4 (9.4-12.3) fL Immature Gran % (Auto) 0.2 (0.0-0.4) % Neut % (Auto) 57.6 (45-73) % Lymph % (Auto) 28.8 (20-40) % [place] % (Auto) 8.5 (2-11) % Eos % (Auto) 4.1 H (0-4) % Baso % (Auto) 0.8 (0-2) % Lymph # (Auto) 2.6 (1.2-4.9) X10*3/uL [place] # (Auto) 0.8 (0.1-1.2) X10*3/uL Eos # (Auto) 0.4 (0.0-0.4) X10*3/uL Baso # (Auto) 0.1 (0.0-0.2) X10*3/uL Abs Immat Gran (auto) 0.02 (0.00-0.03) X10*3/uL Absolute Neuts (auto) 5.2 (2.0-8.3) X10*3/uL Absolute Nucleated RBC 0.000 (0.0-0.012) X10*3/uL Nucleated RBC % (auto) 0.0 (0.0-0.2) /100WBC Sodium (135-145) mmol/L Potassium (3.3-5.1) mmol/L Chloride (96-108) mmol/L Carbon Dioxide (22-29) mmol/L Anion Gap (12-20) BUN (9-16) mg/dL Creatinine (0.5-1.4) mg/dL Estim Creat Clear Calc Estimated GFR Random Glucose (60-115) mg/dL Calcium (8.4-10.2) mg/dL Total Bilirubin (0.0-1.0) mg/dL Direct Bilirubin (0.0-0.5) mg/dL AST (5-31) U/L ALT (0-31) U/L Alkaline Phosphatase (39-117) U/L Total Protein (6.5-8.0) g/dL Albumin (3.5-5.0) g/dL Beta HCG, Quant mIU/mL Urine Color YELLOW Urine Appearance CLEAR Urine pH 7.5 (5.0-8.0) Ur Specific [place] 1.020 (1.005-1.025) Urine Protein NEG (NEG-TRACE) MG/DL Urine Glucose (UA) NEG (NEG) MG/DL Urine Ketones NEG (NEG) MG/DL Urine Blood NEG (NEG) Urine Nitrite NEG (NEG) Ur Leukocyte Esterase NEG (NEG) Urine Test POSITIVE H (NEGATIVE) 12/07/20 Range/Units 04:09 WBC (4.8-10.8) X10*3/uL RBC (4.20-5.50) X10*6/uL Hgb (12.0-16.0) g/dl Hct (37-47) % MCV (80-98) fL MCH (27.0-33.0) pg MCHC (31.0-35.0) g/dl RDW (11.0-16.0) % Plt Count (160-400) X10*3/uL MPV (9.4-12.3) fL Immature Gran % (Auto) (0.0-0.4) % Neut % (Auto) (45-73) % Lymph % (Auto) (20-40) % [place] % (Auto) (2-11) % Eos % (Auto) (0-4) % Baso % (Auto) (0-2) % Lymph # (Auto) (1.2-4.9) X10*3/uL [place] # (Auto) (0.1-1.2) X10*3/uL Eos # (Auto) (0.0-0.4) X10*3/uL Baso # (Auto) (0.0-0.2) X10*3/uL Abs Immat Gran (auto) (0.00-0.03) X10*3/uL Absolute Neuts (auto) (2.0-8.3) X10*3/uL Absolute Nucleated RBC (0.0-0.012) X10*3/uL Nucleated RBC % (auto) (0.0-0.2) /100WBC Sodium 138 (135-145) mmol/L Potassium 4.0 (3.3-5.1) mmol/L Chloride 109 H (96-108) mmol/L Carbon Dioxide 24 (22-29) mmol/L Anion Gap 9 L (12-20) BUN 10 (9-16) mg/dL Creatinine 0.65 (0.5-1.4) mg/dL Estim Creat Clear Calc 113.8 Estimated GFR > 60 Random Glucose 91 (60-115) mg/dL Calcium 9.3 (8.4-10.2) mg/dL Total Bilirubin 0.3 (0.0-1.0) mg/dL Direct Bilirubin 0.2 (0.0-0.5) mg/dL AST 14 (5-31) U/L ALT 12 (0-31) U/L Alkaline Phosphatase 43 (39-117) U/L Total Protein 6.8 (6.5-8.0) g/dL Albumin 4.4 (3.5-5.0) g/dL Beta HCG, Quant 1811 mIU/mL Urine Color Urine Appearance Urine pH (5.0-8.0) Ur Specific [place] (1.005-1.025) Urine Protein (NEG-TRACE) MG/DL Urine Glucose (UA) (NEG) MG/DL Urine Ketones (NEG) MG/DL Urine Blood (NEG) Urine Nitrite (NEG) Ur Leukocyte Esterase (NEG) Urine Test (NEGATIVE) Discharge Plan Discharge Clinical Impression: Abdominal pain Patient Disposition: Home, Self-Care Instructions: Abdominal Pain (ED) Additional Instructions: Please follow-up with your primary care physician tomorrow. If you have any worsening or new symptoms, please return to the emergency room or call 911 Prescriptions: New acetaminophen 500 mg tablet 500 mg PO Q6H PRN (Reason: pain) Qty: 20 RF: 0 No Action ondansetron HCl [Zofran] 4 mg tablet 4 mg PO Q8H PRN (Reason: nausea and vomiting) Qty: 10 RF: 0 alum-mag hydroxide-simeth [Maalox Advanced] 200-200-20 mg/5 mL suspension 5 ml PO 5XD PRN (Reason: indigestion) Qty: 3000 RF: 0 PMFSH Social History Social History Advance Directives: No Patient : Yes
[2020-12-07 04:13] LABS: MANUAL DIFF FLAG NO
[2020-12-07 04:14] LABS: Basophils Absolute Auto 0.1 X10*3/uL (0.0-0.2); Basophils Percent Auto 0.8 % (0-2); Eosinophils Absolute Auto 0.4 X10*3/uL (0.0-0.4); Eosinophils Percent Auto 4.1 % (0-4); Hematocrit 36.7 % (37-47); Hemoglobin 12.5 g/dl (12.0-16.0); Imm Gran Abs Auto 0.02 X10*3/uL (0.00-0.03); Imm Gran Pct Auto 0.2 % (0.0-0.4); Lymphocytes Absolute Auto 2.6 X10*3/uL (1.2-4.9); Lymphocytes Percent Auto 28.8 % (20-40); Mean Corpuscular HGB Conc 34.1 g/dl (31.0-35.0); Mean Corpuscular Hemoglobin 29.8 pg (27.0-33.0); Mean Corpuscular Volume 87.4 fL (80-98); Mean Platelet Volume 9.4 fL (9.4-12.3); Monocytes Absolute Auto 0.8 X10*3/uL (0.1-1.2); Monocytes Percent Auto 8.5 % (2-11); Neutrophils Absolute Auto 5.2 X10*3/uL (2.0-8.3); Neutrophils Percent Auto 57.6 % (45-73); Platelet Count 330 X10*3/uL (160-400); Red Cell Distribution Width 12.4 % (11.0-16.0)
[2020-12-07 04:45] LABS: Alanine Aminotransferase 12 U/L (0-31); Albumin Level 4.4 g/dL (3.5-5.0); Alkaline Phosphatase 43 U/L (39-117); Anion Gap 9 (12-20); Aspartate Amino Transferase 14 U/L (5-31); Bilirubin Direct 0.2 mg/dL (0.0-0.5); Bilirubin Total 0.3 mg/dL (0.0-1.0); Blood Urea Nitrogen 10 mg/dL (9-16); Calcium 9.3 mg/dL (8.4-10.2); Carbon Dioxide 24 mmol/L (22-29); Chloride 109 mmol/L (96-108); Creatinine Clr Calc Pharmacy 113.8; Estimated Glomerular Filt Rate > 60; Glucose Random 91 mg/dL (60-115); Sodium 138 mmol/L (135-145); Total Protein 6.8 g/dL (6.5-8.0)
[2020-12-07 04:51] LABS: HCG Quantitative 1811 mIU/mL
[2020-12-07] MEDS: Acetaminophen 325 MG TABLET 650 MG PO (05:39)
[2020-12-07 05:52] VITALS: BP 93/58; PULSE 80; RESP 16; O2SAT 98
== END 2020-12-07 05:59 | disposition home or self-care (01) ==
PROVIDERS: Emergency Provider Emergency Medicine
DX: O26.91 Pregnancy related conditions, unspecified, first trimester (principal); Z3A.01 Less than 8 weeks gestation of pregnancy; Z79.899 Other long term (current) drug therapy
CPT/HCPCS: 36415; 80048; 80076; 81003; 81025; 84702; 85025; 99283; 99284

== ENCOUNTER 2021-01-23 00:57 | Emergency (ER) | payer OTHER, SELFPAY ==
[2021-01-23 01:07] VITALS: BP 120/82; BP 125/69; PULSE 112; PULSE 96; RESP 20; TEMP 36.1; O2SAT 100; O2SAT 99; BMI 30.2
--- NOTE | 2021-01-23 03:02 | PC.NURSE ---
at bedside with U/S. Pt refusing IV, labs and IVF. aware.
--- NOTE | 2021-01-23 03:04 | ED_ITS ---
HPI - Fall General Chief Complaint: Fall Stated Complaint: anxiety and abdominal pain Time Seen by Provider: 01/23/21 02:24 Source: patient Mode of arrival: EMS Limitations: no limitations History of Present Illness HPI Narrative: Patient comes to emergency room complaining of a fall, hitting her abdomen. Patient states she has that she is a at 11 weeks of gestational age. Patient denies vomiting, no abdominal pain, no vaginal bleeding or spotting, no fluid leakage. Patient states that she is known to have seizures, takes Keppra. Patient had an aura, patient lower herself to the ground and that is when she had her belly. EMS was called, patient did not lose consciousness. EMS suggested for her to come to emergency room. Patient denies abdominal pain Related Data Previous Rx's Medication Instructions Recorded aluminum-mag hydroxide-simethicone 5 ml PO 5XD PRN #3000 ml 09/05/20 200 mg-200 mg-20 mg/5 mL oral susp (Maalox Advanced) ondansetron HCl 4 mg tablet 4 mg PO Q8H PRN #10 tab 09/05/20 (Zofran) acetaminophen 500 mg tablet 500 mg PO Q6H PRN #20 tab 12/07/20 Allergies Allergy/AdvReac Type Severity Reaction Status Date / Time No Known Allergies Allergy Verified 12/07/20 02:09 Review of Systems Review of Systems: Constitutional : No Weight loss, No Fever, No Chills, No Night Sweats, No Fatigue, No Malaise ENT/Mouth : No Hearing loss, No Ear Pain, No Nasal Congestion, No Sinus Pain, No Hoarseness, No sore throat, No Rhinorrhea, No Swallowing Difficulty Eyes: No Eye Pain, No Swelling, No Redness, No Foreign Body, No Discharge, No Vision Changes Cardiovascular : No Chest Pain, No SOB, No Dyspnea on Exertion, No Orthopnea, No Edema, No Palpitations Respiratory : No Cough, No Sputum, No Wheezing, No Smoke Exposure, No Dyspnea Gastrointestinal : No Nausea, No Vomiting, No Diarrhea, No Constipation, No abdominal Pain, No Hematochezia, No Melena Genitourinary : No vaginal bleeding, spotting, vaginal leakage No Dysuria, No Urinary Frequency, No Hematuria, No Urinary Incontinence, No Urgency, No Flank Pain, No Urinary Flow Changes, No Hesitancy Musculoskeletal : No joint pain, No Myalgias, No Joint Swelling Skin : No Skin Lesions, No rash Neuro : No Weakness, No Numbness, No Paresthesias, No Loss of Consciousness, No Dizziness, No Headache Psych : No Anxiety/Panic, No Depression, No SI/HI/AH/VH, No Social Issues, Heme/Lymph: No Bruising, No Bleeding,No Lymphadenopathy Endocrine : No Polyuria, No Polydipsia, No Temperature Intolerance [facility] Social History Social History Advance Directives: No Advance Directives Information Provided: No Patient : Yes Physical Exam Vital Signs: Vital Signs: Last Vital Signs Temp 96.9 F 01/23/21 01:07 Pulse 96 01/23/21 01:07 Resp 20 01/23/21 01:07 BP 125/69 01/23/21 01:07 Pulse Ox 99 01/23/21 01:07 Body Mass Index 30.2 Const: Other: Appearance: Alert. Oriented X3. No acute distress. Eyes: Pupils equal, round and reactive to light. ENT: Pharynx normal. Neck: Normal inspection. Neck supple. No lymph nodes noted. No crepitus CVS: Normal heart rate and rhythm. Pulses normal. Normal S1 and S2 Respiratory: No respiratory distress. Breath sounds normal. No Wheezing. No rales Abdomen: Soft and nontender. No rigidity. No distention. Bedside ultrasound shows good movement, heart rate 140 Skin: Skin warm and dry. Normal skin color. Normal skin turgor. Extremities: No lower extremity edema. No lower extremity edema. No Lac erations. No Rash Neuro: Oriented X 3. No motor deficit. No sensory deficit. Moving all extermities. No slurred speech. Course Course Course Narrative: Patient declined labs, declined urinalysis. Patient states that she wanted to see the baby on the ultrasound. Patient declined EKG as well Discharge Plan Discharge Clinical Impression: Fall, Patient Disposition: Home, Self-Care Instructions: Abdominal Pain in (ED) Additional Instructions: Please follow-up with your primary care physician tomorrow. If you have any worsening or new symptoms, please return to the emergency room or call 911 Prescriptions: No Action ondansetron HCl [Zofran] 4 mg tablet 4 mg PO Q8H PRN (Reason: nausea and vomiting) Qty: 10 RF: 0 alum-mag hydroxide-simeth [Maalox Advanced] 200-200-20 mg/5 mL suspension 5 ml PO 5XD PRN (Reason: indigestion) Qty: 3000 RF: 0 acetaminophen 500 mg tablet 500 mg PO Q6H PRN (Reason: pain) Qty: 20 RF: 0
== END 2021-01-23 03:38 | disposition home or self-care (01) ==
PROVIDERS: Emergency Provider Emergency Medicine
DX: O26.91 Pregnancy related conditions, unspecified, first trimester (principal); Z3A.11 11 weeks gestation of pregnancy; Z79.899 Other long term (current) drug therapy
CPT/HCPCS: 96360; 99283; 99284

== ENCOUNTER 2022-01-12 16:59 | Emergency (ER) | payer OTHER, SELFPAY ==
--- NOTE | ~2022-01-12 | XR_ITS ---
EXAMINATION: XR CHEST, 2 VIEWS CLINICAL INFORMATION: Chest pain. COMPARISON: 08/07/2020 TECHNIQUE: PA and lateral views of the chest were obtained. FINDINGS: Lungs are clear. No consolidation, pneumothorax, or pleural effusion. Cardiac and mediastinal contours are normal. Pulmonary vasculature is unremarkable. Trachea is midline. Osseous structures are unremarkable. XR/XR chest 2V IMPRESSION: Normal chest radiographs.
[2022-01-12 17:22] VITALS: BP 106/69; PULSE 74; RESP 106; TEMP 36.8; O2SAT 100; BMI 30.2
--- NOTE | 2022-01-12 17:25 | ECG_ITS ---
Test Reason : CHEST PAIN Blood Pressure : / mmHG Vent. Rate : 073 BPM Atrial Rate : 073 BPM P-R Int : 166 ms QRS Dur : 082 ms QT Int : 394 ms P-R-T Axes : 035 049 055 degrees QTc Int : 434 ms Normal sinus rhythm Normal ECG When compared with ECG of 07-AUG-2020 00:47, No significant change was found Referred By: Generic ED Physician Electronically Signed By:JOANA WOLF
[2022-01-12 17:54] LABS: MANUAL DIFF FLAG NO
[2022-01-12 18:05] LABS: Basophils Absolute Auto 0.1 X10*3/uL (0.0-0.2); Basophils Percent Auto 1.5 % (0-2); Eosinophils Absolute Auto 0.3 X10*3/uL (0.0-0.4); Eosinophils Percent Auto 4.2 % (0-4); Hemoglobin 12.7 g/dl (12.0-16.0); Imm Gran Abs Auto 0.01 X10*3/uL (0.00-0.03); Imm Gran Pct Auto 0.1 % (0.0-0.4); Lymphocytes Absolute Auto 2.9 X10*3/uL (1.2-4.9); Lymphocytes Percent Auto 39.6 % (20-40); Mean Corpuscular HGB Conc 32.6 g/dl (31.0-35.0); Mean Corpuscular Hemoglobin 28.4 pg (27.0-33.0); Mean Corpuscular Volume 87.2 fL (80.0-98.0); Mean Platelet Volume 9.5 fL (9.4-12.3); Monocytes Absolute Auto 0.5 X10*3/uL (0.1-1.2); Monocytes Percent Auto 7.2 % (2-11); Neutrophils Absolute Auto 3.5 x10*3/uL (2.0-8.3); Neutrophils Percent Auto 47.4 % (45-73); Platelet Count 428 X10*3/uL (160-400); Red Blood Count 4.47 X10*6/uL (4.20-5.50); White Blood Count 7.4 X10*3/uL (4.8-10.8)
[2022-01-12 18:22] LABS: Alanine Aminotransferase 12 U/L (0-31); Albumin Level 4.6 g/dL (3.5-5.0); Alkaline Phosphatase 75 U/L (39-117); Anion Gap 15 (12-20); Aspartate Amino Transferase 19 U/L (5-31); Bilirubin Total < 0.2 mg/dL (0.0-1.0); Blood Urea Nitrogen 13 mg/dL (9-16); Calcium 9.4 mg/dL (8.4-10.2); Carbon Dioxide 25 mmol/L (22-29); Chloride 105 mmol/L (96-108); Creatinine Clr Calc Pharmacy 122.2; Estimated Glomerular Filt Rate > 60; Glucose Random 64 mg/dL (60-115); Potassium 4.2 mmol/L (3.3-5.1); Sodium 141 mmol/L (135-145); Total Protein 7.2 g/dL (6.5-8.0)
[2022-01-12 18:25] LABS: Troponin-I High Sensitivity < 3.5 ng/L (<3.5-17.0)
--- OUTSIDE RECORDS SUMMARY | 2022-01-13 00:58 | XMS_ITS | Continuity of Care Document ---
:1995 Author Organization [facility] Address [address] [place] [id number]- Care Team Providers Name Role Phone Yanelis Marques MD Primary Care Physician Encounter [facility] [place] Date(s): 01/18/21 - 01/18/[address] [address]- Discharge Disposition: A-D/C Home Attending Physician: Rafaela Jimenez MD Admitting Physician: Rafaela Jimenez MD Referring Physician: Not on Staff, Referring MD Allergies, Adverse Reactions, Alerts Substance Reaction Severity Status NKA Active Medications Keppra 750 mg oral tablet 1 tablet = 750 mg, By Mouth, 2 times a day, # 180 tablet, 0 Refills, Maintenance, 09/22/17 5:28:49 EDT, Tablet Start Date: 09/22/17 Status: OrderedKeppra 750 mg oral tablet 1 tablet = 750 mg, By Mouth, 2 times a day, # 60 tablet, 0 Refills, Maintenance, 09/22/17 6:46:00 EDT, Tablet Start Date: 09/22/17 Stop Date: 10/22/17 Status: OrderedZoloft 50 mg oral tablet 1 tablet = 50 mg, By Mouth, Daily, # 30 tablet, 0 Refills, Maintenance, 09/22/17 5:29:13 EDT, Tablet Start Date: 09/22/17 Status: Ordered Vital Signs Most recent to oldest [Reference Range]: 1 2 Oxygen Saturation [94-100 %] 100 % 100 % (01/18/21 6:04 PM) (01/18/21 4:15 PM) Pulse Rate [55-90 bpm] 80 bpm 78 bpm (01/18/21 6:04 PM) (01/18/21 4:15 PM) Blood Pressure [90-138/55-84 mm Hg] 108/78 mm Hg 117/ 66 mm Hg (01/18/21 6:04 PM) (01/18/21 4:15 PM) Respiratory Rate [16-30 br/min] 18 br/min 18 br/mi n (01/18/21 6:04 PM) (01/18/21 4:15 PM) Temperature [96.8-100.4 DegF] 97.8 DegF (01/18/21 4:15 PM) Mode of Delivery (Oxygen) Room air Room air (01/18/21 6:04 PM) (01/18/21 4:15 PM)
--- OUTSIDE RECORDS SUMMARY | 2022-01-13 00:58 | XMS_ITS | Continuity of Care Document ---
:1995 Author Organization [facility] Address [address] [place] [id number]- Care Team Providers Name Role Phone Yanelis Marques MD Primary Care Physician Encounter [facility] [place] Date(s): 04/07/20 - 04/08/[address] [address]- Encounter Diagnosis COVID-19 (Final) - 04/07/20 Discharge Disposition: A-D/C Home Attending Physician: Gian Holland MD Admitting Physician: Gian Holland MD Referring Physician: Not on Staff, Referring [...] EDT, Tablet Start Date: 09/22/17 Status: Ordered Results Radiology Reports Exam Date Time Procedure Performing Provider Status 04/07/20 10:58 PM Chest Portable Margy Black ([facility] ed) Notes:(Chest Portable) Reason For Exam: Shortness of BreathRESULT: Chest Portable Chest Portable Hx of Present Illness: Malaise, gen aches loss of taste and smell. Not feeling weel for a few days.;Reason: Shortness of Breath; Clinical Question(s): CHF COMPARISON: 04/26/2007 FINDINGS: LINES AND TUBES: None. LUNGS AND PLEURA: Clear lungs. Normal pulmonary vascularity. No pleural effusion. No pneumothorax. HEART, MEDIASTINUM AND TRENA: Heart is normal in size. Normal upper mediastinal and hilar contour. BONES AND SOFT TISSUES: No acute abnormality. IMPRESSION: No acute abnormality. WSN: [id number] Ordering Physician: Dipesh Richardson Dictated By: Ketan Schumacher MD Dictated Date/Time: 04/07/20 11:19 p Reviewed By: Ketan Schumacher MD Signed By: Ketan Schumacher MD Signed Date/Time: 04/07/20 11:19 pm Transcribed By: URIEL Transcribed Date/Time: 04/07/20 11:19 pm Vital Signs Most recent to oldest 1 2 3 [Reference Range]: Oxygen Saturation [94-100 100 % 99 % 98 % %] (04/07/20 11:11 PM) (04/07/20 8:28 PM) (04/07/20 8:00 PM) Pulse Rate [55-90 bpm] 95 bpm 80 bpm 100 bpm *H* (04/07/20 8:28 PM) *H* (04/07/20 11:11 PM) (04/07/20 8: 00 PM) Blood Pressure 106/67 mm Hg 107/61 mm Hg [90-138/55-84 mm Hg] (04/07/20 11:11 PM) (04/07/20 8:28 PM) Respiratory Rate [16-30 18 br/min 16 br/min 18 br/mi n br/min] (04/07/20 11:11 PM) (04/07/20 8:28 PM) (04/07/20 8:00 PM) Temperature [96.8-100.4 100.4 DegF 98.9 DegF DegF] (04/07/20 11:11 PM) (04/07/20 8:28 PM) Mode of Delivery (Oxygen) Room air Room air Room a ir (04/07/20 11:11 PM) (04/07/20 8:28 PM) (04/07/20 8:00 PM) Blood pressure sites Arm, left Arm, left (04/07/20 11:11 PM) (04/07/20 8:28 PM) Temperature Route Oral Oral (04/07/20 11:11 PM) (04/07/20 8:28 PM)
--- OUTSIDE RECORDS SUMMARY | 2022-01-13 00:58 | XMS_ITS | Continuity of Care Document ---
:1995 Author Organization [facility] Address [address] [place] [phone]- Care Team Providers Name Role Phone Yanelis Marques MD Primary Care Physician Encounter [facility] Date(s): 12/17/20 - 12/17/[address] [address]- Discharge Disposition: A-D/C Walkout Attending Physician: Not on Staff, Attending MD Admitting Physician: Not on Staff, Admitting MD Referring Physician: Not on Staff, Referring [...]
--- OUTSIDE RECORDS SUMMARY | 2022-01-13 00:58 | XMS_ITS | Continuity of Care Document ---
:1995 Author Organization [facility] Address [address] [place] [phone]- Care Team Providers Name Role Phone Yanelis Marques MD Primary Care Physician [place] [facility] Date(s): 07/28/20 - 07/28/[address] [address]- Encounter Diagnosis COVID-19 virus test result unknown (Final) - 07/28/20 Discharge Disposition: A-D/C Home Attending Physician: Trae Boyd MD Admitting Physician: Trae Boyd MD Referring Physician: Not on Staff, Referring [...] Most recent to oldest [Reference Range]: 1 Oxygen Saturation [94-100 %] 100 % (07/28/20 10:13 PM) Pulse Rate [55-90 bpm] 83 bpm (07/28/20 10:13 PM) Blood Pressure [90-138/55-84 mm Hg] 109/66 mm Hg (07/28/20 10:13 PM) Respiratory Rate [16-30 br/min] 18 br/min (07/28/20 10:13 PM) Temperature [96.8-100.4 DegF] 98.7 DegF (07/28/20 10:13 PM) Mode of Delivery (Oxygen) Room air (07/28/20 10:13 PM) Blood pressure sites Arm, left (07/28/20 10:13 PM) Temperature Route Oral (07/28/20 10:13 PM)
--- OUTSIDE RECORDS SUMMARY | 2022-01-13 00:58 | XMS_ITS | Continuity of Care Document ---
:1995 Author Organization [facility] Address [address] [place] [phone]- Care Team Providers Name Role Phone Jerald RAM, Yanelis Cary Primary Care Physician Encounter [facility] [place] Date(s): 02/04/20 - 02/04/[address] [address] Encounter Diagnosis Acute viral syndrome (Final) - 02/04/20 Discharge Disposition: A-D/C Home Attending Physician: Trae [...] Tablet Start Date: 09/22/17 Status: Ordered Results Orders for Microbiology Reports Name Date Group A Strep Screen and Culture 02/04/20 Microbiology Reports TEST:Group A Strep Screen and Culture STATUS:Unauthenticated BODY SITE: SOURCE:THROAT COLLECTED DATE/TIME:02/04/20 4:45 PMGroup A Strep Screen and Culture SPECIMEN DESCRIPTION : THROAT SWAB SPECIAL REQUESTS : NONE DIRECT EXAM : RAPID GROUP A RESULT IS NEGATIVE, REFER TO CULTURE RESULT. REPORT STATUS : PRELIMINARY REPORT Vital Signs Most recent to oldest 1 2 3 [Reference Range]: Oxygen Saturation [94-100 98 % 100 % 100 % %] (02/04/20 10:24 PM) (02/04/20 7:52 PM) (02/04/20 4:05 PM) Pulse Rate [55-90 bpm] 62 bpm 66 bpm 73 bpm (02/04/20 10:24 PM) (02/04/20 7:52 PM) (02/04/20 4:05 PM) Blood Pressure 100/52 mm Hg 105/62 mm Hg 108/64 mm Hg [90-138/55-84 mm Hg] (02/04/20 10:24 PM) (02/04/20 7:52 PM) ( 4:05 PM) Respiratory Rate [16-30 18 br/min 18 br/min 18 br/mi n br/min] (02/04/20 10:24 PM) (02/04/20 7:52 PM) (02/04/20 4:05 PM) Temperature [96.8-100.4 98.2 DegF 97.5 DegF 99.1 Deg F DegF] (02/04/20 10:24 PM) (02/04/20 7:52 PM) (02/04/20 4:05 PM) Mode of Delivery (Oxygen) Room air Room air Room a ir (02/04/20 10:24 PM) (02/04/20 7:52 PM) (02/04/20 4:05 PM) Blood pressure sites Arm, right (02/04/20 4:05 PM) Temperature Route Oral Oral Oral (02/04/20 10:24 PM) (02/04/20 7:52 PM) (02/04/20 4:05 PM)
== END 2022-01-13 02:59 | disposition left against medical advice (07) ==
PROVIDERS: Emergency Provider Emergency Medicine
DX: R07.9 Chest pain, unspecified (principal)
CPT/HCPCS: 36415; 71046; 80053; 84484; 85025; 93005; 99283

== ENCOUNTER 2022-04-26 23:29 | Emergency (ER) | payer OTHER, SELFPAY ==
[2022-04-26 23:37] VITALS: BP 107/84; PULSE 110; RESP 18; TEMP 36.7; O2SAT 100; BMI 31.8
[2022-04-27 00:29] LABS: MANUAL DIFF FLAG NO
[2022-04-27 00:55] VITALS: BP 120/86; PULSE 96; RESP 22; TEMP 37.1; O2SAT 98
--- NOTE | 2022-04-27 00:56 | ED.NAVMDI ---
HPI - Nausea/Vomiting/Diarrhea General Chief complaint: Abdominal Pain Stated complaint: Vomiting Time Seen by Provider: 04/27/22 00:48 Source: patient Mode of arrival: ambulatory Limitations: no limitations History of Present Illness HPI Narrative: Patient comes emergency room complaining of 6 episodes of vomiting for the last 5 hours. Patient states that approximately 12 hours ago she ate [employer], a few hours later she started vomiting and having diarrhea. No fever chills. Related Data Previous Rx's Medication Instructions Recorded aluminum-mag hydroxide-simethicone 5 ml PO 5XD PRN indigestion #3,000 09/05/20 200 mg-200 mg-20 mg/5 mL oral susp mL (Maalox Advanced) ondansetron HCl 4 mg tablet 4 mg PO Q8H PRN nausea and 09/05/20 (Zofran) vomiting #10 tabs acetaminophen 500 mg tablet 500 mg PO Q6H PRN pain #20 tabs 12/07/20 loperamide 2 mg capsule 2 mg PO Q4H PRN loose stool #14 04/27/22 caps ondansetron 4 mg disintegrating 4 mg PO Q6H PRN nausea and 04/27/22 tablet vomiting #10 tabs Allergies Allergy/AdvReac Type Severity Reaction Status Date / Time No Known Allergies Allergy Verified 12/07/20 02:09 Review of Systems Review of Systems: Constitutional : No Weight loss, No Fever, No Chills, No Night Sweats, No Fatigue, No Malaise ENT/Mouth : No Hearing loss, No Ear Pain, No Nasal Congestion, No Sinus Pain, No Hoarseness, No sore throat, No Rhinorrhea, No Swallowing Difficulty Eyes: No Eye Pain, No Swelling, No Redness, No Foreign Body, No Discharge, No Vision Changes Cardiovascular : No Chest Pain, No SOB, No Dyspnea on Exertion, No Orthopnea, No Edema, No Palpitations Respiratory : No Cough, No Sputum, No Wheezing, No Smoke Exposure, No Dyspnea Gastrointestinal : Complaining of nausea vomiting and diarrhea and diffuse abdominal cramping, No Constipation, no melena Genitourinary : no irregular bleeding, No Dysuria, No Urinary Frequency, No Hematuria, No Urinary Incontinence, No Urgency, No Flank Pain, No Urinary Flow Changes, No Hesitancy Musculoskeletal : No joint pain, No Myalgias, No Joint Swelling Skin : No Skin Lesions, No rash Neuro : No Weakness, No Numbness, No Paresthesias, No Loss of Consciousness, No Dizziness, No Headache Psych : No Anxiety/Panic, No Depression, No SI/HI/AH/VH, No Social Issues, Heme/Lymph: No Bruising, No Bleeding,No Lymphadenopathy Endocrine : No Polyuria, No Polydipsia, No Temperature Intolerance [facility] Social History Social History Advance Directives: No Advance Directives Information Provided: Yes Physical Exam Vital Signs: Vital Signs: Last Vital Signs Temp 98.2 F 04/27/22 03:13 Pulse 86 04/27/22 03:13 Resp 14 04/27/22 03:13 BP 94/51 L 04/27/22 03:13 Pulse Ox 99 04/27/22 03:13 O2 Del Method 04/27/22 03:13 BMI result Body Mass Index 31.8 Const: Other: Appearance: Alert. Oriented X3. No acute distress. Eyes: Pupils equal, round and reactive to light. ENT: Pharynx normal. Neck: Normal inspection. Neck supple. No lymph nodes noted. No crepitus CVS: Normal heart rate and rhythm. Pulses normal. Normal S1 and S2 Respiratory: No respiratory distress. Breath sounds normal. No Wheezing. No rales Abdomen: Soft and nontender. No rigidity. No distention. Skin: Skin warm and dry. Normal skin color. Normal skin turgor. Extremities: No lower extremity edema. No Lacerations. No Rash Neuro: Oriented X 3. No motor deficit. No sensory deficit. Moving all extremities. No slurred speech. CN 2 through 12 grossly intact Psych: calm, cooperative, normal affect Course Course Course Narrative: While I was in the room, patient started having tonic clonic like movements. However, this movement was inconsistent with an actual seizure. Patient does have history of seizures. I asked patient to stop shaking her limbs and she followed instructions. Patient receiving IV fluids, ketorolac, loperamide, Zofran. Of patient's labs are pending. Patient's white blood cell count elevated likely reactive leukocytosis Medications Administered Discontinued Medications Generic Name Dose Route Start Last Admin Trade Name Freq PRN Reason Stop Dose Admin Sodium Chloride 2,000 mls @ 999 mls/hr 04/27/22 00:53 04/27/22 01:05 Ns IVCONT 04/27/22 02:53 999 mls/hr .Q2H1M ONE Administration Levetiracetam 750 mg/ Sodium 107.5 mls @ 430 mls/hr 04/27/22 01:13 04/27/22 03:38 Chloride IV 04/27/22 01:27 Infused ONCE ONE Infusion Ketorolac Tromethamine 30 mg 04/27/22 00:53 04/27/22 01:05 Ketorolac Tromethamine 30 Mg/Ml Vial IVPUSH 04/27/22 00:54 30 mg ONCE ONE Administration Loperamide HCl 4 mg 04/27/22 00:56 04/27/22 01:06 Loperamide Hcl 2 Mg Capsule PO 04/27/22 00:57 4 mg ONCE ONE Administration Ondansetron HCl 4 mg 04/27/22 00:53 04/27/22 01:06 Ondansetron Hcl 4 Mg/2 Ml Vial IVPUSH 04/27/22 00:54 4 mg ONCE ONE Administration Medical Decision Making Medical Decision Making [facility] Narrative: Patient no longer vomiting, no abdominal pain, feeling better. Likely viral syndrome versus food poisoning/gastroenteritis. Differential Diagnosis Differential Diagnoses: The differential diagnosis associated with the presentation includes (viral syndrome versus food poisoning/gastroenteritis.) Lab Data [facility] Lab Attestation statement: I reviewed the patient's lab results. 04/27/22 00:23 04/27/22 00:23 Labs: Lab Results 04/27/22 04/27/22 04/27/22 Range/Units 00: 01:04 03:16 WBC 15.3 H (4.8-10.8) X10*3/uL RBC 5.27 (4.20-5.50) X10*6/uL Hgb 15.2 (12.0-16.0) g/dl Hct 45.9 (37.0-47.0) % MCV 87.1 (80.0-98.0) fL MCH 28.8 (27.0-33.0) pg MCHC 33.1 (31.0-35.0) g/dl RDW 13.0 (11.0-16.0) % Plt Count 430 H (160-400) X10*3/uL MPV 10.0 (9.4-12.3) fL Immature Gran % (Auto) 0.4 (0.0-0.4) % Neut % (Auto) 83.8 H (45-73) % Lymph % (Auto) 10.8 L (20-40) % [place] % (Auto) 3.6 (2-11) % Eos % (Auto) 0.8 (0-4) % Baso % (Auto) 0.6 (0-2) % Lymph # (Auto) 1.7 (1.2-4.9) X10*3/uL [place] # (Auto) 0.6 (0.1-1.2) X10*3/uL Eos # (Auto) 0.1 (0.0-0.4) X10*3/uL Baso # (Auto) 0.1 (0.0-0.2) X10*3/uL Abs Immat Gran (auto) 0.06 H (0.00-0.03) X10*3/uL Absolute Neuts (auto) 12.8 H (2.0-8.3) x10*3/uL Absolute Nucleated RBC 0.000 (0.0-0.012) X10*3/uL Nucleated RBC % (auto) 0.0 (0.0-0.2) /100WBC Sodium 141 (135-145) mmol/L Potassium 3.6 (3.3-5.1) mmol/L Chloride 106 (96-108) mmol/L Carbon Dioxide 23 (22-29) mmol/L Anion Gap 16 (12-20) BUN 15 (9-16) mg/dL Creatinine 0.70 (0.5-1.4) mg/dL Estim Creat Clear Calc 104.9 Estimated GFR > 60 Random Glucose 104 (60-115) mg/dL Calcium 10.4 H D (8.4-10.2) mg/dL Total Bilirubin 0.8 (0.0-1.0) mg/dL Direct Bilirubin 0.3 (0.0-0.5) mg/dL AST 17 (5-31) U/L ALT 10 (0-31) U/L Alkaline Phosphatase 63 (39-117) U/L Total Protein 8.1 H (6.5-8.0) g/dL Albumin 5.1 H (3.5-5.0) g/dL Lipase 17 (8-78) U/L Beta HCG, Quant < 2 mIU/mL Urine Color Dark Yellow Urine Appearance Cloudy Urine pH 5.0 (5.0-9.0) Ur Specific [place] >= 1.030 H (1.005-1.025) Urine Protein 30 (1+) H (Neg-Trace) mg/dL Urine Glucose (UA) Negative (Negative) mg/dL Urine Ketones 15 (Negative) mg/dL Urine Blood Negative (Negative) Urine Nitrite Negative (Negative) Ur Leukocyte Esterase Negative (Negative) Urine RBC 0-2 (0-2) /HPF Urine WBC 0-5 (0-5) /HPF Ur Squamous Epith Cells 6-10 (0-2) /HPF Urine Bacteria Trace (None Seen) Hyaline Casts 0-2 (0-2) /LPF Discharge Plan Discharge Clinical Impression: Gastroenteritis Patient Disposition: Home, Self-Care Instructions: Acute Nausea and Vomiting (ED) Additional Instructions: Please follow-up with your primary care physician tomorrow. If you have any worsening or new symptoms, please return to the emergency room or call 911 Prescriptions: New ondansetron 4 mg tablet,disintegrating 4 mg PO Q6H PRN (Reason: nausea and vomiting) Qty: 10 0RF loperamide 2 mg capsule 2 mg PO Q4H PRN (Reason: loose stool) Qty: 14 0RF Rx Instructions: administer after each loose stool until symptoms controlled; do not exceed 8 mg per 24 hrs No Action ondansetron HCl [Zofran] 4 mg tablet 4 mg PO Q8H PRN (Reason: nausea and vomiting) Qty: 10 0RF alum-mag hydroxide-simeth [Maalox Advanced] 200-200-20 mg/5 mL suspension 5 ml PO 5XD PRN (Reason: indigestion) Qty: 3000 0RF Rx Instructions: administer between meals and at bedtime acetaminophen 500 mg tablet 500 mg PO Q6H PRN (Reason: pain) Qty: 20 0RF
[2022-04-27] MEDS: Ketorolac Tromethamine 30 MG/ML VIAL IVPUSH (01:05)
[2022-04-27] MEDS: 0.9 % Sodium Chloride 2,000 ML 999 ML IVCONT (01:05)
[2022-04-27] MEDS: ondansetron HCL 4 MG/2 ML VIAL IVPUSH (01:06)
[2022-04-27] MEDS: Loperamide HCl 2 MG CAPSULE 4 MG PO (01:06)
[2022-04-27 01:08] LABS: Basophils Absolute Auto 0.1 X10*3/uL (0.0-0.2); Basophils Percent Auto 0.6 % (0-2); Eosinophils Absolute Auto 0.1 X10*3/uL (0.0-0.4); Eosinophils Percent Auto 0.8 % (0-4); Hematocrit 45.9 % (37.0-47.0); Hemoglobin 15.2 g/dl (12.0-16.0); Imm Gran Abs Auto 0.06 X10*3/uL (0.00-0.03); Imm Gran Pct Auto 0.4 % (0.0-0.4); Lymphocytes Absolute Auto 1.7 X10*3/uL (1.2-4.9); Lymphocytes Percent Auto 10.8 % (20-40); Mean Corpuscular HGB Conc 33.1 g/dl (31.0-35.0); Mean Corpuscular Hemoglobin 28.8 pg (27.0-33.0); Mean Corpuscular Volume 87.1 fL (80.0-98.0); Monocytes Absolute Auto 0.6 X10*3/uL (0.1-1.2); Monocytes Percent Auto 3.6 % (2-11); Neutrophils Absolute Auto 12.8 x10*3/uL (2.0-8.3); Neutrophils Percent Auto 83.8 % (45-73); Platelet Count 430 X10*3/uL (160-400); Red Blood Count 5.27 X10*6/uL (4.20-5.50); White Blood Count 15.3 X10*3/uL (4.8-10.8)
[2022-04-27 01:44] LABS: Alanine Aminotransferase 10 U/L (0-31); Albumin Level 5.1 g/dL (3.5-5.0); Alkaline Phosphatase 63 U/L (39-117); Anion Gap 16 (12-20); Aspartate Amino Transferase 17 U/L (5-31); Bilirubin Direct 0.3 mg/dL (0.0-0.5); Bilirubin Total 0.8 mg/dL (0.0-1.0); Blood Urea Nitrogen 15 mg/dL (9-16); Calcium 10.4 mg/dL (8.4-10.2); Carbon Dioxide 23 mmol/L (22-29); Chloride 106 mmol/L (96-108); Creatinine Clr Calc Pharmacy 104.9; Estimated Glomerular Filt Rate > 60; Glucose Random 104 mg/dL (60-115); Lipase 17 U/L (8-78); Potassium 3.6 mmol/L (3.3-5.1); Sodium 141 mmol/L (135-145); Total Protein 8.1 g/dL (6.5-8.0)
[2022-04-27] MEDS: levETIRAcetam 750 MG in 0.9 % Sodium Chloride 100 ML 430 MG IV (01:44)
[2022-04-27 01:48] LABS: HCG Quantitative < 2 mIU/mL
[2022-04-27 03:13] VITALS: BP 94/51; PULSE 86; RESP 14; TEMP 36.8; O2SAT 99
[2022-04-27 03:42] LABS: Appearance Urine Cloudy; Color Urine Dark Yellow; Glucose Urine UA Negative (Negative); Leukocyte Esterase Urine Negative (Negative); Nitrite Urine Negative (Negative); Specific Gravity - Urine >= 1.030 (1.005-1.025); UMIC TRIGGER UACC YES; Urine Blood Negative (Negative); Urine Ketones 15 mg/dL (Negative); Urine Protein 30 (1+) mg/dL (Neg-Trace)
[2022-04-27 03:45] LABS: Bacteria Urine Trace (None Seen); Hyaline Casts Urine 0-2 /LPF (0-2); RBC Urine 0-2 /HPF (0-2); WBC Urine 0-5 /HPF (0-5)
--- NOTE | 2022-04-27 04:20 | PC.NURSE ---
pt discharged, instructions given, verbalized understanding pt alert and oriented left ambulatory independently IV removed
== END 2022-04-27 04:21 | disposition home or self-care (01) ==
PROVIDERS: Emergency Provider Emergency Medicine; PCP Internal Medicine
DX: K52.9 Noninfective gastroenteritis and colitis, unspecified (principal)
CPT/HCPCS: 36415; 80053; 81001; 82248; 83690; 84702; 85025; 96365; 96375; 99284; J1885; J1953; J2405

== ENCOUNTER 2022-08-05 14:12 | Emergency (ER) | payer OTHER, SELFPAY ==
[2022-08-05 14:14] VITALS: BP 96/71; PULSE 95; RESP 18; TEMP 36.7; O2SAT 99; BMI 32.3
--- NOTE | 2022-08-05 14:15 | ED.GENADULT ---
HPI - General Adult General Chief complaint: Nausea/Vomiting/Diarrhea Stated complaint: Vomiting Diarrhea Body Pain Related Data Previous Rx's Medication Instructions Recorded aluminum-mag hydroxide-simethicone 5 ml PO 5XD PRN indigestion #3,000 09/05/20 200 mg-200 mg-20 mg/5 mL oral susp mL (Maalox Advanced) ondansetron HCl 4 mg tablet 4 mg PO Q8H PRN nausea and 09/05/20 (Zofran) vomiting #10 tabs acetaminophen 500 mg tablet 500 mg PO Q6H PRN pain #20 tabs 12/07/20 loperamide 2 mg capsule 2 mg PO Q4H PRN loose stool #14 04/27/22 caps ondansetron 4 mg disintegrating 4 mg PO Q6H PRN nausea and 04/27/22 tablet vomiting #10 tabs Allergies Allergy/AdvReac Type Severity Reaction Status Date / Time metoclopramide [From Reglan] AdvReac Unknown Verified 08/05/22 14:16 [facility] Social History Social History Advance Directives: No Physical Exam ED Vital Signs: BMI result Body Mass Index 32.3 Course Course Course Narrative: RME- 27-year-old female presents for evaluation of upper abdominal pain with vomiting that started this morning. Patient reports history of gastritis Medical Decision Making Lab Data 08/05/22 14:22 08/05/22 14:22 Labs: Lab Results 08/05/22 Range/Units 14:22 WBC 11.1 H (4.8-10.8) X10*3/uL RBC 5.12 (4.20-5.50) X10*6/uL Hgb 14.6 (12.0-16.0) g/dl Hct 43.6 (37.0-47.0) % MCV 85.2 (80.0-98.0) fL MCH 28.5 (27.0-33.0) pg MCHC 33.5 (31.0-35.0) g/dl RDW 12.5 (11.0-16.0) % Plt Count 375 (160-400) X10*3/uL MPV 9.1 L (9.4-12.3) fL Immature Gran % (Auto) 0.4 (0.0-0.4) % Neut % (Auto) 80.2 H (45-73) % Lymph % (Auto) 12.1 L (20-40) % [place] % (Auto) 5.0 (2-11) % Eos % (Auto) 1.8 (0-4) % Baso % (Auto) 0.5 (0-2) % Lymph # (Auto) 1.3 (1.2-4.9) X10*3/uL [place] # (Auto) 0.6 (0.1-1.2) X10*3/uL Eos # (Auto) 0.2 (0.0-0.4) X10*3/uL Baso # (Auto) 0.1 (0.0-0.2) X10*3/uL Abs Immat Gran (auto) 0.04 H (0.00-0.03) X10*3/uL Absolute Neuts (auto) 8.9 H (2.0-8.3) x10*3/uL Absolute Nucleated RBC 0.000 (0.0-0.012) X10*3/uL Nucleated RBC % (auto) 0.0 (0.0-0.2) /100WBC Sodium 138 (135-145) mmol/L Potassium 4.1 (3.3-5.1) mmol/L Chloride 108 (96-108) mmol/L Carbon Dioxide 25 (22-29) mmol/L Anion Gap 9 L (12-20) BUN 13 (9-16) mg/dL Creatinine 0.73 (0.5-1.4) mg/dL Estim Creat Clear Calc 101.2 Estimated GFR > 60 Random Glucose 85 (60-115) mg/dL Calcium 9.3 D (8.4-10.2) mg/dL Total Bilirubin 0.9 (0.0-1.0) mg/dL AST 16 (5-31) U/L ALT 10 (0-31) U/L Alkaline Phosphatase 60 (39-117) U/L Total Protein 7.3 (6.5-8.0) g/dL Albumin 4.8 (3.5-5.0) g/dL Lipase 21 (8-78) U/L Discharge Plan Discharge Clinical Impression: Vomiting Patient Disposition: [facility] Prescriptions: No Action ondansetron HCl [Zofran] 4 mg tablet 4 mg PO Q8H PRN (Reason: nausea and vomiting) Qty: 10 0RF alum-mag hydroxide-simeth [Maalox Advanced] 200-200-20 mg/5 mL suspension 5 ml PO 5XD PRN (Reason: indigestion) Qty: 3000 0RF Rx Instructions: administer between meals and at bedtime acetaminophen 500 mg tablet 500 mg PO Q6H PRN (Reason: pain) Qty: 20 0RF ondansetron 4 mg tablet,disintegrating 4 mg PO Q6H PRN (Reason: nausea and vomiting) Qty: 10 0RF loperamide 2 mg capsule 2 mg PO Q4H PRN (Reason: loose stool) Qty: 14 0RF Rx Instructions: administer after each loose stool until symptoms controlled; do not exceed 8 mg per 24 hrs Interventions: ED Discharge Assessment Last Done: 08/05/22 19:25 Discharge Date/Time: 08/05/22 19:25
[2022-08-05 14:26] LABS: MANUAL DIFF FLAG NO
[2022-08-05 14:27] LABS: Basophils Absolute Auto 0.1 X10*3/uL (0.0-0.2); Basophils Percent Auto 0.5 % (0-2); Eosinophils Absolute Auto 0.2 X10*3/uL (0.0-0.4); Eosinophils Percent Auto 1.8 % (0-4); Hematocrit 43.6 % (37.0-47.0); Hemoglobin 14.6 g/dl (12.0-16.0); Imm Gran Abs Auto 0.04 X10*3/uL (0.00-0.03); Imm Gran Pct Auto 0.4 % (0.0-0.4); Lymphocytes Absolute Auto 1.3 X10*3/uL (1.2-4.9); Lymphocytes Percent Auto 12.1 % (20-40); Mean Corpuscular HGB Conc 33.5 g/dl (31.0-35.0); Mean Corpuscular Hemoglobin 28.5 pg (27.0-33.0); Mean Corpuscular Volume 85.2 fL (80.0-98.0); Mean Platelet Volume 9.1 fL (9.4-12.3); Monocytes Absolute Auto 0.6 X10*3/uL (0.1-1.2); Neutrophils Absolute Auto 8.9 x10*3/uL (2.0-8.3); Neutrophils Percent Auto 80.2 % (45-73); Platelet Count 375 X10*3/uL (160-400); Red Blood Count 5.12 X10*6/uL (4.20-5.50); Red Cell Distribution Width 12.5 % (11.0-16.0); White Blood Count 11.1 X10*3/uL (4.8-10.8)
[2022-08-05 14:49] LABS: Alanine Aminotransferase 10 U/L (0-31); Albumin Level 4.8 g/dL (3.5-5.0); Alkaline Phosphatase 60 U/L (39-117); Anion Gap 9 (12-20); Aspartate Amino Transferase 16 U/L (5-31); Bilirubin Total 0.9 mg/dL (0.0-1.0); Blood Urea Nitrogen 13 mg/dL (9-16); Calcium 9.3 mg/dL (8.4-10.2); Carbon Dioxide 25 mmol/L (22-29); Chloride 108 mmol/L (96-108); Creatinine Clr Calc Pharmacy 101.2; Estimated Glomerular Filt Rate > 60; Glucose Random 85 mg/dL (60-115); Lipase 21 U/L (8-78); Potassium 4.1 mmol/L (3.3-5.1); Sodium 138 mmol/L (135-145); Total Protein 7.3 g/dL (6.5-8.0)
== END 2022-08-05 19:25 | disposition left against medical advice (07) ==
PROVIDERS: Physician Assistant; Emergency Provider Emergency Medicine
DX: R11.2 Nausea with vomiting, unspecified (principal); R19.7 Diarrhea, unspecified; Z79.899 Other long term (current) drug therapy
CPT/HCPCS: 36415; 80053; 83690; 85025; 99282; 99283

== ENCOUNTER → 2023-03-08 13:18 | Outpatient (BNVA) | payer OTHER, SELFPAY | PROVIDERS: Visit Provider Dietitian, Registered ==

== ENCOUNTER 2023-11-27 16:20 | Emergency (ER) | payer OTHER, SELFPAY ==
--- NOTE | ~2023-11-27 | XR_ITS ---
EXAMINATION: XR LUMBOSACRAL SPINE CLINICAL INFORMATION: Pain COMPARISON: 11/13/2018 TECHNIQUE: Three views of the lumbosacral spine. FINDINGS: There is a mild straightening of the normal lumbar lordosis possibly due to positioning or muscular spasm. Bones are otherwise in normal anatomic alignment with no acute fracture or spondylolisthesis. Vertebral body heights and disc heights are preserved. Paravertebral soft tissues and bowel gas pattern unremarkable XR/XR lumbar spine 2-3V IMPRESSION: Mild straightening of the normal lumbar lordosis possibly due to positioning or muscular spasm.
[2023-11-27 16:22] VITALS: BP 116/63; PULSE 79; RESP 16; TEMP 36.8; O2SAT 99; BMI 34.3
--- NOTE | 2023-11-27 16:31 | ED_ITS ---
HPI - Female Genitourinary General Chief complaint: Urogenital-Female Stated complaint: lower back pain radiating down to left knee Time Seen by Provider: 11/27/23 20:57 History of Present Illness ED Provider: Samir BETTS Narrative: The patient is an ordinarily healthy 28-year-old. 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 She has a 2-year-old at home. She has been having problems with low back pain for a few weeks. Earlier today she started to feel pain radiating down her left leg and felt a sense of numbness in her left leg as well. She has no had no loss of bowel or bladder control. She has some mild increased sense of urination but no dysuria. No fever, sweats, chills. She can not recall any particular trauma or incident that triggered her pain. No nausea or vomiting. No abdominal pain. No fever, sweats, chills. Related Data Previous Rx's ?Medication ?Instructions ?Recorded aluminum-mag hydroxide-simethicone 5 ml PO 5XD PRN indigestion #3,000 09/05/20 200 mg-200 mg-20 mg/5 mL oral susp mL (Maalox Advanced) ondansetron HCl 4 mg tablet 4 mg PO Q8H PRN nausea and 09/05/20 (Zofran) vomiting #10 tabs acetaminophen 500 mg tablet 500 mg PO Q6H PRN pain #20 tabs 12/07/20 loperamide 2 mg capsule 2 mg PO Q4H PRN loose stool #14 04/27/22 caps ondansetron 4 mg disintegrating 4 mg PO Q6H PRN nausea and 04/27/22 tablet vomiting #10 tabs cyclobenzaprine 10 mg tablet 10 mg PO TID PRN muscle spasm #14 11/27/23 tabs ibuprofen 600 mg tablet 600 mg PO Q6H PRN pain #14 tabs 11/27/23 Allergies Allergy/AdvReac Type Severity Reaction Status Date / Time metoclopramide [From Reglan] AdvReac Unknown Verified 11/27/23 16:28 Review of Systems 2 Review of Systems: Yes all other systems are reviewed and are negative PMFSH Social History Social History Advance Directives: No Advance Directives Information Provided: No Do you have a plan to hurt others: No Plan Physical Exam 2 Vital Signs: Vital Signs: Last Vital Signs Temp 97.8 F 11/27/23 20:46 Pulse 76 11/27/23 20:46 Resp 16 11/27/23 20:46 BP 98/57 L 11/27/23 20:46 Pulse Ox 100 11/27/23 20:46 O2 Del Method Room Air 11/27/23 20:46 BMI result Body Mass Index 34.3 Const: Other: The patient is awake, alert, pleasant, cooperative. She looks uncomfortable when she moves around. HEENT: Other: The face is symmetrical. ?Mucous membranes moist. Eyes: Other: Pupils are round equal, conjunctivae are clear, extraocular movements intact Neck: Neck: Yes full ROM Resp: Effort & Inspection: normal respiratory effort Auscultation: clear to auscultation bilaterally Cardio: Rate: regular rate Rhythm: regular rhythm Heart sounds: S1 normal heart sound present and S2 normal heart sound present GI: Other: Abdomen is soft and nontender Back/Spine/Pelvis: Other: Mild diffuse tenderness in the lumbar region Skin: General skin exam: no rashes or lesions noted Neuro: Other: The patient is awake and alert with a normal mental status. Toes go down bilaterally. 2+ reflexes of the knees and ankles. She reports slightly diminished sensation in the left leg. No significant loss of strength in the left leg. Extrem: Other: Straight leg raise with either leg does not really elicit any significant amount of discomfort General: Yes no pedal edema and Yes no calf tenderness Course Course Course Narrative: RME performed by Erica Riley PA-C. Patient is a 28 year old assigned female at presenting to the emergency department with low back pain and dysuria. Detailed physical exam and review of systems are deferred to the plumber pipe fitting. Labs ordered. Patient placed back in the waiting room pending room availability and results. Medications Administered Discontinued Medications Generic Name Dose Route Start Last Admin Trade Name Freq PRN Reason Stop Dose Admin Acetaminophen 650 mg 11/27/23 19:53 11/27/23 19:55 Acetaminophen 325 Mg Tablet PO 11/27/23 19:54 650 mg ONCE ONE Administration Medical Decision Making Differential Diagnosis The patient is a 28-year-old female presents with low back pain radiating down her left leg. This is suggestive of a sciatica type syndrome. No red flags by history or on exam. Labs were done that are unremarkable. Urinalysis not highly consistent with a UTI. Plain films of the lumbar spine were done that I reviewed and do not feel show any acute problem. I think this is a sciatica syndrome. She will be discharged with a work note for 1 week. She will be prescribed ibuprofen and cyclobenzaprine. She should follow up with her PCP. Lab Data 11/27/23 16:42 11/27/23 16:42 Labs: Lab Results 11/27/23 11/27/23 Range/Units 16:42 18:24 WBC 10.4 (4.8-10.8) X10*3/uL RBC 4.19 L (4.20-5.50) X10*6/uL Hgb 12.2 (12.0-16.0) g/dl Hct 35.8 L (37.0-47.0) % MCV 85.4 (80.0-98.0) fL MCH 29.1 (27.0-33.0) pg MCHC 34.1 (31.0-35.0) g/dl RDW 13.2 (11.0-16.0) % Plt Count 392 (160-400) X10*3/uL MPV 9.5 (9.4-12.3) fL Immature Gran % (Auto) 0.2 (0.0-0.4) % Neut % (Auto) 58.2 (45-73) % Lymph % (Auto) 32.6 (20-40) % [place] % (Auto) 4.3 (2-11) % Eos % (Auto) 3.6 (0-4) % Baso % (Auto) 1.1 (0-2) % Lymph # (Auto) 3.4 (1.2-4.9) X10*3/uL [place] # (Auto) 0.5 (0.1-1.2) X10*3/uL Eos # (Auto) 0.4 (0.0-0.4) X10*3/uL Baso # (Auto) 0.1 (0.0-0.2) X10*3/uL Abs Immat Gran (auto) 0.02 (0.00-0.03) X10*3/uL Absolute Neuts (auto) 6.1 (2.0-8.3) x10*3/uL Absolute Nucleated RBC 0.000 (0.0-0.012) X10*3/uL Nucleated RBC % (auto) 0.0 (0.0-0.2) /100WBC Sodium 138 (135-145) mmol/L Potassium 3.8 (3.3-5.1) mmol/L Chloride 110 H (96-108) mmol/L Carbon Dioxide 18 L (22-29) mmol/L Anion Gap 14 (12-20) BUN 12 (9-16) mg/dL Creatinine 0.66 (0.5-1.4) mg/dL Estim Creat Clear Calc 114.7 Estimated GFR > 60 Random Glucose 96 (60-115) mg/dL Calcium 9.8 (8.4-10.2) mg/dL Magnesium 2.0 (1.6-2.6) mg/dL Total Bilirubin 0.4 (0.0-1.0) mg/dL AST 18 (5-31) U/L ALT 11 (0-31) U/L Alkaline Phosphatase 49 (39-117) U/L Total Protein 7.3 (6.5-8.0) g/dL Albumin 4.4 (3.5-5.0) g/dL Beta HCG, Quant < 2 mIU/mL Urine Color Yellow Urine Appearance Clear Urine pH 5.5 (5.0-9.0) Ur Specific [place] 1.025 (1.005-1.025) Urine Protein Negative (Neg-Trace) mg/dL Urine Glucose (UA) Negative (Negative) mg/dL Urine Ketones Negative (Negative) mg/dL Urine Blood Negative (Negative) Urine Nitrite Negative (Negative) Ur Leukocyte Esterase Small (1+) H (Negative) Urine RBC 0-2 (0-2) /HPF Urine WBC 0-5 (0-5) /HPF Ur Squamous Epith Cells 6-10 (0-2) /HPF Urine Bacteria None Seen (None Seen) Hyaline Casts 0-2 (0-2) /LPF Discharge Plan Discharge Clinical Impression: Acute left-sided low back pain with sciatica Patient Disposition: Home, Self-Care Instructions: Acute Low Back Pain (ED), Sciatica (ED) Additional Instructions: You seemed to have a back pain syndrome consistent with what is called sciatica. You may use acetaminophen (Tylenol) as needed for pain. I have sent a prescription for ibuprofen that you may also use. Additionally I have sent a prescription for a medication called cyclobenzaprine which is a muscle relaxant often known as Flexeril. You may use this medication for pain as well but you should not drive on this medication. Avoid lifting and bending. Please contact your regular doctor's office soon to make a prompt follow up appointment. Return to the emergency department if you develop a fever or have trouble moving your bowels or emptying her bladder. Prescriptions: New ibuprofen 600 mg tablet 600 mg PO Q6H PRN (Reason: pain) Qty: 14 0RF cyclobenzaprine 10 mg tablet 10 mg PO TID PRN (Reason: muscle spasm) Qty: 14 0RF No Action ondansetron HCl [Zofran] 4 mg tablet 4 mg PO Q8H PRN (Reason: nausea and vomiting) Qty: 10 0RF alum-mag hydroxide-simeth [Maalox Advanced] 200-200-20 mg/5 mL suspension 5 ml PO 5XD PRN (Reason: indigestion) Qty: 3000 0RF Rx Instructions: administer between meals and at bedtime acetaminophen 500 mg tablet 500 mg PO Q6H PRN (Reason: pain) Qty: 20 0RF ondansetron 4 mg tablet,disintegrating 4 mg PO Q6H PRN (Reason: nausea and vomiting) Qty: 10 0RF loperamide 2 mg capsule 2 mg PO Q4H PRN (Reason: loose stool) Qty: 14 0RF Rx Instructions: administer after each loose stool until symptoms controlled; do not exceed 8 mg per 24 hrs Referrals: [facility] [Provider Group] (low back pain/sciatica) Stand Alone Forms: Work/School Release Print Language: [place]
[2023-11-27 16:45] LABS: MANUAL DIFF FLAG NO
[2023-11-27 16:52] LABS: Basophils Absolute Auto 0.1 X10*3/uL (0.0-0.2); Basophils Percent Auto 1.1 % (0-2); Eosinophils Absolute Auto 0.4 X10*3/uL (0.0-0.4); Eosinophils Percent Auto 3.6 % (0-4); Hematocrit 35.8 % (37.0-47.0); Hemoglobin 12.2 g/dl (12.0-16.0); Imm Gran Abs Auto 0.02 X10*3/uL (0.00-0.03); Imm Gran Pct Auto 0.2 % (0.0-0.4); Lymphocytes Absolute Auto 3.4 X10*3/uL (1.2-4.9); Lymphocytes Percent Auto 32.6 % (20-40); Mean Corpuscular HGB Conc 34.1 g/dl (31.0-35.0); Mean Corpuscular Hemoglobin 29.1 pg (27.0-33.0); Mean Corpuscular Volume 85.4 fL (80.0-98.0); Mean Platelet Volume 9.5 fL (9.4-12.3); Monocytes Absolute Auto 0.5 X10*3/uL (0.1-1.2); Monocytes Percent Auto 4.3 % (2-11); Neutrophils Absolute Auto 6.1 x10*3/uL (2.0-8.3); Neutrophils Percent Auto 58.2 % (45-73); Platelet Count 392 X10*3/uL (160-400); Red Blood Count 4.19 X10*6/uL (4.20-5.50); Red Cell Distribution Width 13.2 % (11.0-16.0); White Blood Count 10.4 X10*3/uL (4.8-10.8)
[2023-11-27 17:07] LABS: Alanine Aminotransferase 11 U/L (0-31); Albumin Level 4.4 g/dL (3.5-5.0); Alkaline Phosphatase 49 U/L (39-117); Anion Gap 14 (12-20); Aspartate Amino Transferase 18 U/L (5-31); Bilirubin Total 0.4 mg/dL (0.0-1.0); Blood Urea Nitrogen 12 mg/dL (9-16); Calcium 9.8 mg/dL (8.4-10.2); Carbon Dioxide 18 mmol/L (22-29); Chloride 110 mmol/L (96-108); Creatinine Clr Calc Pharmacy 114.7; Estimated Glomerular Filt Rate > 60; Glucose Random 96 mg/dL (60-115); Potassium 3.8 mmol/L (3.3-5.1); Sodium 138 mmol/L (135-145); Total Protein 7.3 g/dL (6.5-8.0)
[2023-11-27 17:16] LABS: HCG Quantitative < 2 mIU/mL
[2023-11-27 18:35] LABS: Appearance Urine Clear; Color Urine Yellow; Glucose Urine UA Negative (Negative); Leukocyte Esterase Urine Small (1+) (Negative); Nitrite Urine Negative (Negative); PH 5.5 (5.0-9.0); Specific Gravity - Urine 1.025 (1.005-1.025); UMIC TRIGGER UACC YES; Urine Blood Negative (Negative); Urine Ketones Negative (Negative); Urine Protein Negative (Neg-Trace)
[2023-11-27 18:47] LABS: Bacteria Urine None Seen (None Seen); Hyaline Casts Urine 0-2 /LPF (0-2); RBC Urine 0-2 /HPF (0-2); UACC Culture Trigger YES; WBC Urine 0-5 /HPF (0-5)
[2023-11-27] MEDS: Acetaminophen 325 MG TABLET 650 MG PO (19:55)
[2023-11-27 20:46] VITALS: BP 98/57; PULSE 76; RESP 16; TEMP 36.6; O2SAT 100
[2023-11-27] MEDS: Ketorolac Tromethamine 30 MG/ML VIAL IM (21:18)
--- NOTE | 2023-11-27 21:21 | PC.NURSE ---
Pt lavern by , medicated per JUN, cleared for dc home.
[2023-11-27 21:41] VITALS: BP 98/57; PULSE 76; RESP 16; TEMP 36.6; O2SAT 100
== END 2023-11-27 21:41 | disposition home or self-care (01) ==
PROVIDERS: Physician Assistant Medical; Emergency Provider Emergency Medicine
DX: M54.42 Lumbago with sciatica, left side (principal); M25.562 Pain in left knee; Z79.899 Other long term (current) drug therapy
CPT/HCPCS: 36415; 72100; 80053; 81001; 83735; 84702; 85025; 87086; 96372; 99284; J1885

== ENCOUNTER 2023-12-17 21:02 | Emergency (ER) | payer OTHER, SELFPAY | END 2023-12-17 22:10 | disposition left against medical advice (07) | PROVIDERS: Emergency Provider Emergency Medicine | DX: J02.9 Acute pharyngitis, unspecified (principal); R05.9 Cough, unspecified ==

== ENCOUNTER 2024-01-11 01:51 | Emergency (ER) | payer OTHER, SELFPAY ==
--- NOTE | 2024-01-11 03:02 | ECG_ITS ---
Test Reason : SEIZURE Blood Pressure : / mmHG Vent. Rate : 079 BPM Atrial Rate : 079 BPM P-R Int : 162 ms QRS Dur : 082 ms QT Int : 376 ms P-R-T Axes : 044 030 041 degrees QTc Int : 431 ms Normal sinus rhythm Normal ECG When compared with ECG of 12-JAN-2022 17:36, No significant change was found Referred By: Shabbir Winter Electronically Signed By:JOANA WOLF
[2024-01-11 05:58] LABS: Alanine Aminotransferase 12 U/L (0-31); Albumin Level 4.3 g/dL (3.5-5.0); Alkaline Phosphatase 50 U/L (39-117); Anion Gap 13 (12-20); Aspartate Amino Transferase 17 U/L (5-31); Bilirubin Total 0.4 mg/dL (0.0-1.0); Blood Urea Nitrogen 11 mg/dL (9-16); Calcium 9.4 mg/dL (8.4-10.2); Carbon Dioxide 21 mmol/L (22-29); Chloride 109 mmol/L (96-108); Estimated Glomerular Filt Rate > 60; Glucose Random 95 mg/dL (60-115); Potassium 3.7 mmol/L (3.3-5.1); Sodium 139 mmol/L (135-145)
[2024-01-11 05:59] LABS: Troponin-I High Sensitivity < 2.7 ng/L (<3.5-17.0)
[2024-01-11 06:00] LABS: MANUAL DIFF FLAG NO
[2024-01-11 06:05] LABS: Basophils Absolute Auto 0.1 X10*3/uL (0.0-0.2); Basophils Percent Auto 0.9 % (0-2); Eosinophils Absolute Auto 0.2 X10*3/uL (0.0-0.4); Eosinophils Percent Auto 1.4 % (0-4); Hematocrit 37.4 % (37.0-47.0); Hemoglobin 12.7 g/dl (12.0-16.0); Imm Gran Abs Auto 0.05 X10*3/uL (0.00-0.03); Imm Gran Pct Auto 0.4 % (0.0-0.4); Lymphocytes Absolute Auto 2.3 X10*3/uL (1.2-4.9); Lymphocytes Percent Auto 18.4 % (20-40); Mean Corpuscular Hemoglobin 28.9 pg (27.0-33.0); Mean Platelet Volume 9.5 fL (9.4-12.3); Monocytes Absolute Auto 0.6 X10*3/uL (0.1-1.2); Neutrophils Absolute Auto 9.4 x10*3/uL (2.0-8.3); Neutrophils Percent Auto 73.9 % (45-73); Platelet Count 395 X10*3/uL (160-400); Red Cell Distribution Width 12.7 % (11.0-16.0); White Blood Count 12.7 X10*3/uL (4.8-10.8)
[2024-01-11 06:07] LABS: Appearance Urine Clear; Color Urine Yellow; Glucose Urine UA Negative (Negative); Leukocyte Esterase Urine Negative (Negative); Nitrite Urine Negative (Negative); Specific Gravity - Urine 1.015 (1.005-1.025); Urine Blood Negative (Negative); Urine Ketones Negative (Negative); Urine Protein Negative (Neg-Trace)
[2024-01-11 06:08] LABS: UPreg QC Valid YES; Urine Pregnancy NEGATIVE (NEGATIVE)
== END 2024-01-11 06:15 | disposition home or self-care (01) ==
PROVIDERS: Emergency Provider Emergency Medicine
DX: F41.1 Generalized anxiety disorder (principal); R56.9 Unspecified convulsions; Z79.899 Other long term (current) drug therapy
CPT/HCPCS: 36415; 80053; 81003; 81025; 84484; 85025; 93005; 99283

== ENCOUNTER 2025-01-01 16:09 | Emergency (ER) | payer OTHER, SELFPAY ==
[2025-01-01 16:13] VITALS: BP 121/72; PULSE 87; RESP 16; TEMP 37.2; O2SAT 98; BMI 37.8
[2025-01-01] MEDS: oxyCODONE HCl Immed Release 5 MG TABLET PO (16:33)
[2025-01-01] MEDS: Diphth,Pertus(ACell),Tet Adult 0.5 ML SYRINGE IM (16:36)
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
[2025-01-01] MEDS: Silver Sulfadiazine 1 % Cream 20 GM TUBE 1 APPL TOPICAL (17:15)
[2025-01-01 18:05] VITALS: BP 121/72; PULSE 87; RESP 16; TEMP 37.2; O2SAT 98
--- OUTSIDE RECORDS SUMMARY | 2025-01-01 19:19 | XMS_ITS | Clinical Summary ---
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 20 tablet 0 01/05/2021 Active prochlorperazine (COMPAZINE) [address] 1 suppository (25 mg total) rectally every 12 (twelve) hours as needed for nausea. 12 suppository 0 01/05/2021 Active Social History Tobacco Use Types Packs/Day Years Used Date Smoking Tobacco: Never Assessed Sex and Gender Information Value Date Recorded Sex Assigned at Female 01/05/2021 6:29 PM EDT Gender Identity Not on file Sexual Orientation Not on file Job Start Date Occupation Industry Not on file Not on file Not on file Last Filed Vital Signs Vital Sign Reading Time Taken Comments Blood Pressure 113/79 01/05/2021 7:13 PM EDT Pulse 91 01/05/2021 7:13 PM EDT Temperature 36.9 C (98.4 F) 01/05/2021 7:13 PM EDT Respiratory Rate 20 01/05/2021 7:13 PM EDT Oxygen Saturation 100% 01/05/2021 7:13 PM EDT Inhaled Oxygen Concentration - - Weight - - Height 149.9 cm (4' 11 ) 01/05/2021 6:10 PM EDT Body Mass Index - - Plan of Treatment Not on file [address] [place] [address]
--- OUTSIDE RECORDS SUMMARY | 2025-01-01 19:19 | XMS_ITS ---
Author Name [facility] Organization Unknown Results Test Name/Text Value Interpretation Date Range Source ALT (SGPT) 16.0 U/L Normal 06/03/2023 12 - 78 [facility] ALBUMIN 4.1 g/dL Normal 06/03/2023 3.4 - 5 [facility] ALKALINE PHOSPHATASE 56.0 U/L Normal 06/03/2023 50 - 136 [facility] CHLORIDE 112.0 mmol/L Above high normal 06/03/2023 98 - 107 [facility] BUN/CREAT.RATIO 13.0 Normal 06/03/2023 [facility] BUN 10.0 mg/dL Normal 06/03/2023 7 - 18 [facility] CO2 23.0 mmol/L Normal 06/03/2023 21 - 32 [facility] GLOBULIN 3.1 g/dL Normal 06/03/2023 2.4 - 4.2 [facility] POTASSIUM SERUM 3.8 mmol/L Normal 06/03/2023 3.5 - 5.1 [facility] PROTEIN, TOTAL 7.2 g/dL Normal 06/03/2023 6.4 - 8.2 [facility] GLUCOSE 79.0 mg/dL Normal 06/03/2023 74 - 100 [facility] AST (SGOT) 22.0 U/L Normal 06/03/2023 15 - 37 [facility] CREATININE 0.77 mg/dL Normal 06/03/2023 0.55 - 1.3 [facility] MH A/G RATIO 1.3 g/dL Normal 06/03/2023 [facility] BILIRUBIN,TOTAL 0.3 mg/dL Normal 06/03/2023 0.2 - 1 [facility] SODIUM 140.0 mmol/L Normal 06/03/2023 136 - 145 [facility] PATIENT FASTING? UNKNOWN Normal 06/03/2023 [facility] GFRE 96.0 Normal 06/03/2023 60 - [facility] ABSOLUTE BASO 0.1 K/uL Normal 06/03/2023 0 - 0.2 [facility] PLATELET COUNT 444.0 K/uL Normal 06/03/2023 150 - 480 [facility] BASOPHILS 1.0 % Normal 06/03/2023 0 - 2 [facility] HGB 13.4 g/dL Normal 06/03/2023 12.1 - 15.7 [facility] LYMPHS 36.0 % Normal 06/03/2023 16 - 50 [facility] IMMATURE GRANULOCYTES 0.0 % Normal 06/03/2023 0 - 0.4 5 [facility] GRANULOCYTES 53.0 % Normal 06/03/2023 23 - 78 [facility] MH ABSOLUTE IMMATURE GRANULOCYTES 0.0 K/uL Normal 06/03/2023 0 - 0.3 [facility] MCH 29.0 PG Normal 06/03/2023 27 - 34 [facility] MONOCYTES 7.0 % Normal 06/03/2023 0 - 12 [facility] RBC 4.68 M/uL Normal 06/03/2023 4 - 5.4 [facility] MCV 85.0 fL Normal 06/03/2023 83 - 102 [facility] MCHC 33.8 g/dL Normal 06/03/2023 31 - 36 [facility] ABSOLUTE GRANULOCYTES 5.4 K/uL Normal 06/03/2023 2.2 - 7 .3 [facility] EOSINOPHILS 3.0 % Normal 06/03/2023 0 - 6 [facility] ABSOLUTE NUCLEATED RBC 0.0 K/uL Normal 06/03/2023 0 - 0. 012 [facility] RDW 13.0 % Normal 06/03/2023 11.1 - 13.3 [facility] ABSOLUTE MONOS 0.7 K/uL Normal 06/03/2023 0.2 - 1.5 [facility] ABSOLUTE LYMPHS 3.8 K/uL Normal 06/03/2023 1.5 - 4.9 [facility] ABSOLUTE EOS 0.3 K/uL Normal 06/03/2023 0 - 0.7 [facility] MH HCT 39.7 % Normal 06/03/2023 36 - 46 [facility] MPV 10.0 fL Normal 06/03/2023 8 - 12 [facility] WBC 10.3 K/uL Normal 06/03/2023 3.7 - 10.3 [facility] NUCLEATED RBC 0.0 % Normal 06/03/2023 0 - 0.2 [facility] Encounters Encounter Type Encounter Reason Primary Diagnosis Location Date Emergency Viral infection, unspecified Viral infection, unspecified [place] 07/05/2023 Emergency SEIZURE/ SEIZURE/ [facility]. 06/02/2023 Care Team Organization Name Specialty Phone Email Start Date End Da te [place] PCP [place] 07/05/2023 07/03/2024 [place] NO PCP Primary Care 07/05/2023 [facility] provided,No Primary Care 06/03/2023 09/03/2023 [facility]. No provided Primary Care 06/03/2023
--- OUTSIDE RECORDS SUMMARY | 2025-01-01 19:19 | XMS_ITS | Clinical Summary ---
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 Medications No known medications Social History Tobacco Use Types Packs/Day Years Used Date Smoking Tobacco: Never Assessed Comments Unknown Sex and Gender Information Value Date Recorded Sex Assigned at Female 07/05/2023 6:57 PM EDT Legal Sex Female 7:02 PM EST Gender Identity Female 07/05/2023 6:57 PM EDT Sexual Orientation Choose not to disclose 2023 6:57 PM EDT Last Filed Vital Signs Vital Sign Reading Time Taken Comments Blood Pressure 122/70 07/05/2023 8:18 PM EDT Pulse 86 07/05/2023 8:18 PM EDT Temperature 37.2 C (99 F) 07/05/2023 8:18 PM EDT Respiratory Rate 17 07/05/2023 8:18 PM EDT Oxygen Saturation 100% 07/05/2023 8:18 PM EDT Inhaled Oxygen Concentration - - Weight - - Height - - Body Mass Index - - Plan of Treatment Health Maintenance Due Date Last Done Comments Hepatitis C Virus Screening 1996 HIV Screening 2009 DTaP/Tdap/Td Vaccines (1 - Tdap) 2015 Hepatitis B Vaccines (1 of 3 - 19+ 3-dose series) 2015 Pap Smear (Ages 21-65) 2017 HPV Vaccines (1 - 3-dose SCD M series) 2023 Influenza Vaccine 11/15/2024 05/30/2018 COVID-19 Vaccine (2023-2 5 season) 2024 Pneumococcal Vaccine: Pediat silvana (0-5 Years) and At-Risk Patients (6 to 49 Years) Aged Out No longer eligible b ased on patient's age to complete this topic Insurance [facility] Care Teams Pin Or Clip Fastener Relationship Specialty Start Date End Date Pcp, No PCP - General General Medicine 05/12/21
== END 2025-01-01 18:05 | disposition home or self-care (01) ==
PROVIDERS: Emergency Provider Student in an Organized Health Care Education/Training Program
DX: M79.632 Pain in left forearm (principal); T22.212A Burn of second degree of left forearm, initial encounter; T31.0 Burns involving less than 10% of body surface; X15.0XXA Contact with hot stove (kitchen), initial encounter; Y93.9 Activity, unspecified; Y92.000 Kitchen of unspecified non-institutional (private) residence as the place of occurrence of the external cause; Y99.8 Other external cause status; Z23 Encounter for immunization
CPT/HCPCS: 16025; 90471; 90715; 99283; 99284

== ENCOUNTER 2025-01-20 16:58 | Emergency (ER) | payer OTHER, SELFPAY ==
--- NOTE | ~2025-01-20 | CT_ITS ---
CLINICAL HISTORY: headache CT head without contrast Comparison: None provided Findings: No intra-axial mass, midline shift, hydrocephalus, or acute hemorrhage. No significant atrophy-like change or white matter disease. There is no sinus or mastoid fluid. The orbits are within normal limits. There is no acute fracture. IMPRESSION: 1. No acute intracranial findings. This document has been electronically signed by: Rebeca Yoa MD on 01/20/2025 20:34:45
[2025-01-20 17:31] VITALS: BP 117/71; PULSE 74; RESP 16; TEMP 36.6; O2SAT 100; BMI 38.0
--- NOTE | 2025-01-20 17:36 | ED_ITS ---
HPI - General Adult General Chief complaint: Headache Stated complaint: headache Time Seen by Provider: 01/20/25 19:25 Source: patient Mode of arrival: ambulatory Limitations: no limitations History of Present Illness ED Provider: Dr. Penaloza HPI narrative: 29-year-old female presented hospital today for a week and a half of headache. Patient is describing it as a posterior parietal headache. It radiates from the right side to the left side. She is also complaining of some tension behind a headache. She does endorse some photophobia. No history of headaches in the past. Patient has tried Tylenol with some alleviation however this headache has been persistent therefore she presents to the ER for further evaluation. Related Data Previous Rx's ?Medication ?Instructions ?Recorded aluminum-mag hydroxide-simethicone 5 ml PO 5XD PRN ind igestion #3,000 09/05/20 200 mg-200 mg-20 mg/5 mL oral susp mL (Maalox Advanced) ondansetron HCl 4 mg tablet 4 mg PO Q8H PRN nausea and 09/05/20 (Zofran) vomiting #10 tabs acetaminophen 500 mg tablet 500 mg PO Q6H PRN pain #20 tabs 12/07/20 loperamide 2 mg capsule 2 mg PO Q4H PRN loose stool #14 04/27/22 caps ondansetron 4 mg disintegrating 4 mg PO Q6H PRN nausea and 04/27/22 tablet vomiting #10 tabs cyclobenzaprine 10 mg tablet 10 mg PO TID PRN muscle s pasm #14 11/27/23 tabs ibuprofen 600 mg tablet 600 mg PO Q6H PRN pain #14 t abs 11/27/23 naproxen 500 mg tablet 500 mg PO BID PRN pain #14 t abs 01/01/25 lorazepam 0.5 mg tablet 0.5 mg PO DAILY PRN anxiety 30 01/07/25 days #30 tabs [id number]-[id number] 1 cap PO TID PRN hea dache #10 caps 01/20/25 50 mg-300 mg-40 mg capsule (Fioricet) Allergies Allergy/AdvReac Type Severity Reaction Status Date / Time metoclopramide (From Reglan) AdvReac Unknown Verified 01/20/25 17:34 Review of Systems 2 Review of Systems: Pertinent review of systems as mentioned in HPI. All other system otherwise negative. [facility] Past Medical History [facility] Narrative: Medical history as mentioned in HPI Social History Social History Alcohol intake: current Alcohol intake frequency: holidays/special occasions only Smoked in Last 30 Days: No Use of substances other than those prescribed or required for medical reasons: No Advance Directives: No Advance Directives Information Provided: Yes Patient : No Physical Exam ED Exam Exam: General: Pleasant, no distress, interacting appropriately Head: Normacephalic, atraumatic ENT: oral mucosa moist, neck supple, no tracheal deviation Cardiovascular: regular rate, regular rhythm, no murmurs, rubbing, gallops Respiratory: CTAB, no wheeze, rales, rhonchi Neurological: Awake and alert, no facial droop noted, endorses photophobia no focal neurological deficit Skin: Warm and dry Psychiatric: Appropriate mood and thoughts Vital Signs: Vital Signs - 24 hr 01/20/25 17:31 01/20/25 19:34 01/20/25 22:42 Temperature 98 F 97.9 F Pulse Rate 74 83 Respiratory Rate 16 16 Blood Pressure 117/71 93/53 L 110/74 Pulse Oximetry 100 98 Oxygen Delivery Method Room Air Room Air 01/20/25 23:12 Temperature 98.0 F Pulse Rate 62 Respiratory Rate 18 Blood Pressure 110/74 Pulse Oximetry 96 Oxygen Delivery Method Room Air BMI result Body Mass Index 38.0 Course Course Course Narrative: [age] year female presents to ED for posterior headache past couple of days. Patient denies any recent trauma, chest pain, shortness of breath, slurred speech, facial droop, paralysis of extremities. NIH score is 0. Labs imaging ordered Medications Administered Discontinued Medications Generic Name Dose Route Start Last Admin Trade Name Freq PRN Reason Stop Dose Admin Acetaminophen/Butalbital/Caffeine 1 tab 01/20/25 22:43 01/20/25 23:03 Butalb/Acetamin/Caff 50/325/40 Tablet PO 01/20/25 22:44 1 tab ONCE ONE Administration Magnesium Sulfate 2 gm in 50 mls @ 50 mls/hr 01/20/25 20:00 01/20/25 21:50 Magnesium Sulfate/H2o IV 01/20/25 20:59 Infused ONCE ONE Infusion Lactated Ringer's 1,000 mls @ 999 mls/hr 01/20/25 20:00 01/20/25 23:03 Lr IV 01/20/25 21:00 Infused .Q1H1M MEGHAN Infusion Ketorolac Tromethamine 15 mg 01/20/25 20:00 01/20/25 20:29 Ketorolac Tromethamine 15 Mg/Ml Vial IVPUSH 01/20/25 20:01 15 mg ONCE ONE Administration Lidocaine 1 patch 01/20/25 20:01 01/20/25 20:27 Lidocaine 4 % Patch Adh..Patch TRANSDERMA 01/20/25 20:02 1 patch ONCE ONE Administration Protocol Lorazepam 0.5 mg 01/20/25 20:00 01/20/25 20:23 Lorazepam 0.5 Mg Tablet PO 01/20/25 20:01 0.5 mg ONCE ONE Administration Ondansetron HCl 4 mg 01/20/25 20:00 01/20/25 20:31 Ondansetron Hcl 4 Mg/2 Ml Vial IVPUSH 01/20/25 20:01 4 mg ONCE ONE Administration Medical Decision Making Medical Decision Making MDM Narrative: 29-year-old female presented hospital today for evaluation of 1-1/2 week of headache. Patient has CT head performed. This was negative. No sign of intracranial abnormality. No sign of leukocytosis and the patient's lab work. Patient's chemistries unremarkable. Patient's COVID flu negative. We will plan to treat patient's headache. We will plan to give patient is 0.5 mg of Ativan for possible tension headache. IV Toradol, IV magnesium IV Zofran will be given to the patient along with IV fluid. We will plan to reassess patient after medication. Patient will be signed out to oncoming provider pending reassessment after medication. 10:44 PM 01/20/2025 (Dr. Brittni Henry, D.Tawanna) assumed care from previous provider pending medication effect and final disposition. Patient is reporting 5/10 headache that is persistent but her blood pressure has improved significantly. Suspect migraine headache. We will medicate with Fioricet and discharged home with a prescription. We had an extensive discussion regarding return precautions as well as importance of follow up with primary care. Discharged home in stable condition. Differential Diagnosis Differential Diagnoses: The differential diagnosis associated with the presentation includes Migraine, tension headache, cluster headache Lab Data MDM Lab Attestation statement: I reviewed the patient's lab results. 01/20/25 18:31 01/20/25 18:31 Labs: Lab Results 01/20/25 01/20/25 Range/Units 18:31 18:32 WBC 8.6 (4.8-10.8) X10*3/uL RBC 4.43 (4.20-5.50) X10*6/uL Hgb 12.7 (12.0-16.0) g/dl Hct 37.1 (37.0-47.0) % MCV 83.7 (80.0-98.0) fL MCH 28.7 (27.0-33.0) pg MCHC 34.2 (31.0-35.0) g/dl RDW 13.0 (11.0-16.0) % Plt Count 382 (160-400) X10*3/uL MPV 9.1 L (9.4-12.3) fL Immature Gran % (Auto) 0.2 (0.0-0.4) % Neut % (Auto) 58.0 (45-73) % Lymph % (Auto) 34.0 (20-40) % [place] % (Auto) 4.1 (2-11) % Eos % (Auto) 2.5 (0-4) % Baso % (Auto) 1.2 (0-2) % Lymph # (Auto) 2.9 (1.2-4.9) X10*3/uL [place] # (Auto) 0.4 (0.1-1.2) X10*3/uL Eos # (Auto) 0.2 (0.0-0.4) X10*3/uL Baso # (Auto) 0.1 (0.0-0.2) X10*3/uL Abs Immat Gran (auto) 0.02 (0.00-0.03) X10*3/uL Absolute Neuts (auto) 5.0 (2.0-8.3) x10*3/uL Absolute Nucleated RBC 0.000 (0.0-0.012) X10*3/uL Nucleated RBC % (auto) 0.0 (0.0-0.2) /100WBC Sodium 139 (135-145) mmol/L Potassium 3.6 (3.3-5.1) mmol/L Chloride 107 (96-108) mmol/L Carbon Dioxide 26 (22-29) mmol/L Anion Gap 10 L (12-20) BUN 14 (9-16) mg/dL Creatinine 0.61 (0.5-1.4) mg/dL Estim Creat Clear Calc 130.1 Estimated GFR > 60 Random Glucose 107 (60-115) mg/dL Calcium 9.1 (8.4-10.2) mg/dL Total Bilirubin 0.3 (0.0-1.0) mg/dL AST 23 (5-31) U/L ALT 18 (0-31) U/L Alkaline Phosphatase 60 (39-117) U/L Total Protein 7.4 (6.5-8.0) g/dL Albumin 4.6 (3.5-5.0) g/dL Beta HCG, Quant < 2 mIU/mL COVID-19 (MIRI) Negative (Negative) COVID-19 Clin Com See Note Influenza Type A (ELIAS) Negative (Negative) Influenza Type B (ELIAS) Negative (Negative) Influenza A & B Note See Note Discharge Plan Discharge Clinical Impression: Headache Patient Disposition: Home, Self-Care Instructions: Acute Headache (ED) Additional Instructions: Use Fioricet as needed for severe headaches. Do not take this medication if driving as it can make you drowsy. Return to the emergency depart with any new or worsening symptoms including: Worsening headaches despite medications, inability to tolerate food or drink, fevers greater than 100? associated with headache or stiff neck, any new symptom that concerns you. Call 911 with any medical emergency. Prescriptions: New [id number]-[id number] [Fioricet] 50-300-40 mg capsule 1 cap PO TID PRN (Reason: headache) Qty: 10 0RF No Action lorazepam 0.5 mg tablet 0.5 mg PO DAILY PRN (Reason: anxiety) 30 Days Qty: 30 0RF ondansetron HCl [Zofran] 4 mg tablet 4 mg PO Q8H PRN (Reason: nausea and vomiting) Qty: 10 0RF alum-mag hydroxide-simeth [Maalox Advanced] 200-200-20 mg/5 mL suspension 5 ml PO 5XD PRN (Reason: indigestion) Qty: 3000 0RF Rx Instructions: administer between meals and at bedtime acetaminophen 500 mg tablet 500 mg PO Q6H PRN (Reason: pain) Qty: 20 0RF ondansetron 4 mg tablet,disintegrating 4 mg PO Q6H PRN (Reason: nausea and vomiting) Qty: 10 0RF loperamide 2 mg capsule 2 mg PO Q4H PRN (Reason: loose stool) Qty: 14 0RF Rx Instructions: administer after each loose stool until symptoms controlled; do not exceed 8 mg per 24 hrs ibuprofen 600 mg tablet 600 mg PO Q6H PRN (Reason: pain) Qty: 14 0RF cyclobenzaprine 10 mg tablet 10 mg PO TID PRN (Reason: muscle spasm) Qty: 14 0RF naproxen 500 mg tablet 500 mg PO BID PRN (Reason: pain) Qty: 14 0RF Interventions: ED Discharge Assessment Last Done: 01/20/25 23:12 Discharge Date/Time: 01/20/25 23:15 Print Language: Ivorian
[2025-01-20 18:36] LABS: MANUAL DIFF FLAG NO
[2025-01-20 18:38] LABS: Hematocrit 37.1 % (37.0-47.0); Hemoglobin 12.7 g/dl (12.0-16.0); Imm Gran Abs Auto 0.02 X10*3/uL (0.00-0.03); Imm Gran Pct Auto 0.2 % (0.0-0.4); Lymphocytes Absolute Auto 2.9 X10*3/uL (1.2-4.9); Mean Corpuscular HGB Conc 34.2 g/dl (31.0-35.0); Mean Corpuscular Hemoglobin 28.7 pg (27.0-33.0); Mean Corpuscular Volume 83.7 fL (80.0-98.0); NRBC Abs Auto 0.000 X10*3/uL (0.0-0.012); NRBC Pct Auto 0.0 /100WBC (0.0-0.2); Platelet Count 382 X10*3/uL (160-400); Red Blood Count 4.43 X10*6/uL (4.20-5.50); White Blood Count 8.6 X10*3/uL (4.8-10.8)
--- OUTSIDE RECORDS SUMMARY | 2025-01-20 18:46 | XMS_ITS | Clinical Summary ---
Author Organization [facility] [address] [place] [address] [place] [phone] Phone Care Team Providers Care Planning Director Name Role Phone Alonso Daly MD Primary Care Provider [phone] Allergies Active Allergy Reactions Criticality Noted Date Comments Metoclopramide Hcl Wheezing 01/11/2021 Given in ER for n/v; allergic reaction on 01/06/21: given benedryl for sob. Medications levETIRAcetam (KEPPRA) 750 mg tablet TAKE 1 TABLET BY MOUTH TWICE A DAY 180 tablet 4 Active diclofenac (VOLTAREN) 75 mg EC tablet Take 1 Tablet by mouth 2 times daily. 4 Active albuterol HFA (PROAIR HFA ; PROVENTIL HFA ; VENTOLIN HFA) 90 mcg/actuation inhaler Inhale 2 Puffs into the lungs every 4 hours as needed for Cough or Wheezing. 4 Active clotrimazole-be tamethasone (LOTRISONE) 1-0.05 % creamIndication s:Acute candidiasis of vulva and vagina APPLY SPARINGLY TO AFFECTED AREA TWICE A DAY FOR UP TO 2 WEEKS 30 g 1 5 Active omeprazole (PriLOSEC) [address] capsule TAKE 1 CAPSULE BY MOUTH EVERY DAY 90 capsule 5 Active ipratropium-alb uteroL (Combivent Respimat) 20-100 mcg/actuation inhaler INHALE 1 PUFF INTO THE LUNGS 4 TIMES DAILY. 1 each 2 5 Active aspirin 81 mg EC tablet TAKE 1 TABLET BY MOUTH EVERY DAY 90 tablet 1 5 Active cyclobenzaprine (FLEXERIL) 5 mg tablet Take 1 tablet (5 mg total) by mouth at bedtime as needed for muscle spasms. 30 tablet 5 025 Active atorvastatin (LIPITOR) 40 mg tablet Take 1 tablet (40 mg total) by mouth 1 (one) time each day. 90 tablet 1 5 Active budesonide-form oteroL (Symbicort) 160-4.5 mcg/actuation inhaler Inhale 2 puffs by mouth 2 (two) times a day. Rinse mouth with water after use to reduce aftertaste and incidence of candidiasis. Do not swallow. 10.2 each 2 5 Active atorvastatin (LIPITOR) 40 mg tablet TAKE 1 TABLET BY MOUTH EVERY DAY 90 tablet 1 5 025 Discontinu ed(Reorder ) Symbicort 160-4.5 mcg/actuation inhaler INHALE 2 PUFFS INTO THE LUNGS TWICE A DAY 10.2 each 5 025 Discontinu ed(Reorder ) methylPREDNISol one (MEDROL DOSPAK) 4 mg tablet Take as directed on package. 21 tablet 5 025 Active Problems Problem Noted Date Diagnosed Date COVID-19 virus detected 04/16/2020 Overview (03/20/2024): Diagnosed 04/07/20 Symptoms loss sense of taste and smell Encounters Date Type Department Care Team Description 12/31/2024 1:47 PM EDT - 12/31/2024 11:59 PM EDT Hospital Encounter [address] [phone] Left shoulder tendinitis Discharge Disposition: Home or Self Care 12/31/2024 1:30 PM EDT Office Visit Adult Medicine [address] [phone] Patricia Thomas PA Left shoulder tendinitis (Primary Dx); TIA (transient ischemic attack); Mild intermittent asthma without complication; Seizure disorder (CMS/HCC V24, CMS/HCC V28) 12/30/2024 Telephone Adult Medicine [address] [phone] Alonso Daly MD from Last 3 Months Immunizations Immunization Administration Dates Next Due Influenza Quadravalent, MDCK , 0.5ml, preservative free (Flucelvax) 6mo and older 05/30/2018 Influenza Quadravalent, MDCK , 0.5ml, with preservative (Flucelvax) 6mo and older 02/02/2022 Influenza trivalent, 0.5mL, preservative free (Fluarix; FluLaval; Fluzone) ages 6mo and older (Afluria) 3 years and older 02/14/2023 PPD Test 09/05/2018,08/15/2018 Surgical History Surgery Date Site/Laterality Comments SECTION 04/21/2016 PROCEDURE: HISTORICAL DELIVERY TUBAL LIGATION PROCEDURE: HISTORICAL TUBAL LIGATION Medical History Medical History Date Comments [place]iz[place] [place] [facility] [place]28[place] 11/25/2016 DX:Seizure disorder ([facility]); C OMMENT: Follows with neurology had 24 hour EEG in [place] and MRI, convulsive during c section Anxiety 12/06/2016 DX:Anxiety 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 DX:Fibroa denoma of breast; COMMENT: S/p biopsy 03/2017 Chlamydia contact, treated 04/2020 DX:Colby euceda contact, treated; COMMENT: 04/2020, 05/2020 ASCUS with positive high ris k HPV cervical 11/24/2023 DX:ASCUS with positive high risk HPV cervical Mild intermittent asthma, uncomplicated DX:Mild intermittent asthma, uncomplicated PFO (patent foramen ovale) 01/05/2024 DX:PF O (patent foramen ovale) TIA (transient ischemic attack) 01/05/2024 DX:TIA (transient ischemic attack) Moderate persistent asthma w ithout complication 01/05/2024 DX:Moderate persistent asthm a without complication Family History Medical History Relation Name Comments Breast cancer Aunt 1 mother's aunt Breast cancer Aunt 2 mother's aunt Breast cancer Aunt 3 mother's aunt Diabetes Maternal Grandfather Throat cancer Maternal Grandfather Breast cancer Maternal Grandmother Hypertension Maternal Grandmother Hypertension Paternal Grandmother Other: Other Uncle paternal :kidne y disease Colon cancer Neg Hx Ovarian cancer Neg Hx Prostate cancer Neg Hx Relation Name Status Comments Aunt 1 mother's aunt Alive Aunt 2 mother's aunt Alive Aunt 3 mother's aunt Alive Aunt 4 mother's aunt Alive Father Alive Maternal Grandfather Maternal Grandmother Alive Mother Alive Paternal Grandmother Alive Uncle Social History Tobacco Use Types Packs/Day Years Used Date Smoking Tobacco: Never Smokeless Tobacco: Never Tobacco Cessation:Counseling Given: Not Answered Alcohol Use Standard Drinks/Week Comments No 0 (1 standard drink = 0.6 oz pur e alcohol) Comments No Sex and Gender Information Value Date Recorded Sex Assigned at Not on file Legal Sex Female 8:34 PM EST Gender Identity Not on file Sexual Orientation Not on file Obstetrics History Last Filed Vital Signs Vital Sign Reading Time Taken Comments Blood Pressure 102/75 12/31/2024 1:21 PM EDT Pulse 76 12/31/2024 1:21 PM EDT Temperature 37 C (98.6 F) 12/31/2024 1:21 PM EDT Respiratory Rate 16 12/31/2024 1:21 PM EDT Oxygen Saturation - - Inhaled Oxygen Concentration - - Weight 86.2 kg (190 lb) 12/31/2024 1:21 PM EDT Height 149.9 cm (4' 11 ) 12/31/2024 1:21 PM EDT Body Mass Index 38.38 12/31/2024 1:21 PM EDT Plan of Treatment Upcoming Encounters Date Type Department Care Team (Late st Contact Info) Description 01/23/2025 3:00 PM EDT Office Visit Adult Medicine [address] [phone] Patricia Thomas PA [address] [place] [address] 05/16/2025 4:00 PM EST Office Visit Adult [address] [phone] Alonso Daly MD [address] [place] [address] Health Maintenance Due Date Last Done Comments DTaP,Tdap,and Td Vaccines (1 - Tdap) 2015 Hepatitis B Vaccines (1 of 3 - 19+ 3-dose series) 2015 Pneumococcal Vaccine: Pediatrics (0 to 5 Years) and At-Risk Patients (6 to 49 Years) (1 of 2 - PCV) 2015 COVID-19 Vaccine (3 - Pfizer risk series) 01/25/2022 12/28/2021, 12/01/2021 Social Influencers of Health Screening 03/19/2022 HPV Vaccines (1 - Risk 3-dose SCDM series) 2023 Depression Screening 04/17/2024 Cervical Cancer Screening: Pap Smear 11/15/2024 11/16/2023, 11/16/2023, 11/16/2023, Additional history exists Influenza Vaccine (#1) 2024 , 02/02/2022, 05/30/2018 Cholesterol Screening (Lipid Panel) 01/21/2028 01/20/2023 RSV Immunization Adult Patients (1 - 1-dose 75+ series) 2071 HIV Screening Completed 01/20/2023 Hepatitis C Screening Completed 01/20/2023 HIB Vaccines Aged Out No longer eligi ble based on patient's age to complete this topic Hepatitis A Vaccines Aged Out No long er eligible based on patient's age to complete this topic IPV Vaccines Aged Out No longer eligi ble based on patient's age to complete this topic MMR Vaccines Aged Out No longer eligi ble based on patient's age to complete this topic Meningococcal ACWY Vaccine Aged Out N o longer eligible based on patient's age to complete this topic Meningococcal B Vaccine Aged Out No l onger eligible based on patient's age to complete this topic RSV Immunization Patients Under 20 months Aged Out No longer eligible based on patient's age to complete this topic Varicella Vaccines Aged Out No longer eligible based on patient's age to complete this topic Procedures Procedure Name Priority Date/Time Associated Diagnosis Comments XR SHOULDER 2+ VIEWS LEFT Routine 12/31/2024 1:56 PM EDT Left shoulder tendinitis PAP SMEAR Routine 11/16/2023 HEPATITIS C SCREENING Routine 01/20/2023 HIV SCREENING Routine 01/20/2023 LIPID PANEL Routine 01/20/2023 from Last 3 Months or Most Recently Relevant to Health Maintenance Results * XR Shoulder 2+ Views Left (12/31/2024 1:56 PM EDT) Anatomical Region Laterality Modality Upper Extremities, Shoulder Left Radi ographic Imaging 12/31/2024 6:57 PM EDT Impressions 12/31/2024 6:58 PM EDT No acute fracture or dislocation of the left shoulder. -------- FINAL REPORT -------- Dictated By: Eddy Stern Dictated Date: 12/31/2024 18:57 ET Assigned Physician: Eddy Stern Reviewed and Electronically Signed By: Eddy Stern Signed Date: 12/31/2024 18:58 ET Workstation ID: [id number] Transcribed By: Self Edit Transcribed Date: 12/31/2024 18:57 ET Narrative 12/31/2024 6:58 PM EDT HISTORY: left shoulder pain TECHNIQUE: 4 views of the left shoulder COMPARISON: None FINDINGS: No acute fracture or dislocation is seen. There is no evidence of malalignment. The AC joint is intact. Procedure Note Eddy Stern MD - 12/31/2024 HISTORY: left shoulder pain TECHNIQUE: 4 views of the left shoulder COMPARISON: None FINDINGS: No acute fracture or dislocation is seen. There is no evidence ofmalalignment. The AC joint is intact. IMPRESSION: No acute fracture or dislocation of the left shoulder. -------- FINAL REPORT -------- Dictated By: Eddy Stern Dictated Date: 12/31/2024 18:57 ET Assigned Physician: Eddy Stern Reviewed and Electronically Signed By: Eddy Stern Signed Date: 12/31/2024 18:58 ET Workstation ID: [id number] Transcribed By: Self Edit Transcribed Date: 12/31/2024 18:57 ET Patricia GARCIA IMG XR PROCEDURES Final Result * Pap smear (11/16/2023) 11/16/2023 Narrative HISTORICAL TESTING LAB RESULTING AGENCY - 11/24/2023 10:01 AM EDT [id number] THINPREP PAP, IMAGED: ATYPICAL SQUAMOUS CELLS OF UNDETERMINED SIGNIFICANCE (ASCUS) . DOROTEO MANCIA M.D. , PATHOLOGIST (CASE ELECTRONICALLY SIGNED 11 24 2023) RESULTS OF APTIMA HPV 16 AND 18/45 GENOTYPE ASSAY: HPV 16: NEGATIVE HPV 18/45: NEGATIVE RESULT OF APTIMA HIGH RISK HPV ASSAY: HIGH RISK HPV: POSITIVE (SEROTYPES 16,18,31,33,35,39,45,51,52,56,58,59,66,68) COMPLETED ON 2023-11-24 ADEQUACY: SATISFACTORY ENDOCERVICAL/TRANSFORMATION ZONE COMPONENT PRESENT. SOURCE: THINPREP PAP HPV IF ASCUS, CERVICAL, IMAGED CLINICAL INFORMATION: HPV IF DIAGNOSIS OF ASCUS. HORMONES, PAP HX POSITIVE ASCUS HPV + IN 2020, [Z12.4] Ashleigh Plunkett DO LAB CYTOLOGY ORDERABLES Final Result HISTORICAL TESTING LAB RESULTING AGENCY * HIV Screening (01/20/2023) HIV Screening abstracted Historical Provider HEALTH MAINTENANCE Final Result * Hepatitis C Screening (01/20/2023) Hepatitis C Screening abstracted Historical Provider HEALTH MAINTENANCE Final Result * (ABNORMAL) Lipid panel (01/20/2023) LDL/HDL Ratio 4 0 - 4 Triglycerides 61 mg/dL Cholesterol 162 0 - 200 mg/dL HDL 47 >=40 mg/dL LDL Cholesterol 103(A) 0 - 100 mg/dL Blood Venous blood specimen / Unknown us Historical Provider LAB BLOOD ORDERABLES [place] l Result from Last 3 Months or Most Recently Relevant to Health Maintenance Insurance [facility] Care Teams Planning Director Relationship Specialty Start Date End Date Alonso Daly MD [address] [place] [address] PCP - General Internal Medicine 09/29/21
--- OUTSIDE RECORDS SUMMARY | 2025-01-20 18:46 | XMS_ITS | Clinical Summary ---
Author Organization [facility] Address [address] [place] [address] Care Team Providers Care Finish Photographer Name Role Phone Unavailable Primary Care Provider [...] Treatment Not on file [address] [place] [address]
--- OUTSIDE RECORDS SUMMARY | 2025-01-20 18:46 | XMS_ITS | Clinical Summary ---
Author Organization [facility] Address [address] [place] [address] Care Team Providers Care Receptionist Doctor'S Office Name Role Phone Pcp, No Primary Care [...] series) 2015 Pap Smear (Ages 21-65) 2017 Influenza Vaccine 11/15/2024 05/30/2018 COVID-19 Vaccine (2023-2 5 season) 2024 HPV Vaccines (No Doses Required) Completed Pneumococcal Vaccine: Pediat silvana (0-5 Years) and At-Risk Patients (6 to 49 Years) Aged Out No longer eligible b ased on patient's age to complete this topic Insurance [facility] Care Teams Receptionist Doctor'S Office Relationship Specialty Start Date End Date Pcp, No PCP - General General Medicine 05/12/21
[2025-01-20 18:52] LABS: Alanine Aminotransferase 18 U/L (0-31); Albumin Level 4.6 g/dL (3.5-5.0); Alkaline Phosphatase 60 U/L (39-117); Anion Gap 10 (12-20); Aspartate Amino Transferase 23 U/L (5-31); Blood Urea Nitrogen 14 mg/dL (9-16); Calcium 9.1 mg/dL (8.4-10.2); Carbon Dioxide 26 mmol/L (22-29); Chloride 107 mmol/L (96-108); Creatinine Clr Calc Pharmacy 130.1; Estimated Glomerular Filt Rate > 60; Potassium 3.6 mmol/L (3.3-5.1); Sodium 139 mmol/L (135-145); Total Protein 7.4 g/dL (6.5-8.0)
[2025-01-20 18:55] LABS: COVID-19 Test Negative (Negative); IDNOW Serial# 58CA691E
[2025-01-20 19:00] LABS: IDNOW Serial# 55D5AD1C; Influenza B2 Negative (Negative)
[2025-01-20 19:34] VITALS: BP 93/53; PULSE 83; RESP 16; TEMP 36.6; O2SAT 98
[2025-01-20] MEDS: Lidocaine 4 % Patch ADH..PATCH 1 PATCH TRANSDERMA (20:27)
[2025-01-20] MEDS: Lactated Ringers 1,000 ML 999 ML IV (20:32)
[2025-01-20] MEDS: Magnesium Sulfate/H2O 2 GM/50 ML PIGGYBACK IV (20:40)
[2025-01-20 22:42] VITALS: BP 110/74
[2025-01-20] MEDS: Butalb/Acetamin/Caff 50/325/40 TABLET 1 TAB PO (23:03)
[2025-01-20 23:12] VITALS: BP 110/74; PULSE 62; RESP 18; TEMP 36.7; O2SAT 96
== END 2025-01-20 23:15 | disposition home or self-care (01) ==
PROVIDERS: Physician Assistant; Emergency Provider Emergency Medicine
DX: R51.9 Headache, unspecified (principal)
CPT/HCPCS: 36415; 70450; 80053; 84702; 85025; 87502; 87635; 96361; 96365; 96375; 99284; J1885; J2405; J3475; J7120

== ENCOUNTER → 2025-01-20 17:34 | Outpatient (BNV) | payer OTHER, SELFPAY | PROVIDERS: Emergency Provider Student in an Organized Health Care Education/Training Program; Visit Provider Student in an Organized Health Care Education/Training Program | DX: R51.9 Headache, unspecified (principal) | CPT/HCPCS: 70450 ==

== ENCOUNTER 2025-01-21 15:00 | Outpatient (RCR) | payer OTHER, SELFPAY | END 2025-01-21 16:30 | disposition home or self-care (01) | LOC: HO.WCC 15:00 | PROVIDERS: Visit Provider Surgery Surgical Oncology | DX: T23.272D Burn of second degree of left wrist, subsequent encounter (principal); I95.9 Hypotension, unspecified; T31.0 Burns involving less than 10% of body surface; Z79.899 Other long term (current) drug therapy | CPT/HCPCS: 99212; 99214 ==

== ENCOUNTER 2025-02-21 09:24 | Outpatient (AMB) | payer OTHER, SELFPAY ==
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
--- OUTSIDE RECORDS SUMMARY | 2025-02-21 10:38 | XMS_ITS | Clinical Summary ---
Author Organization [facility] Address [address] [place] [address] Care Team Providers Care Environmental Health Safety Engineer Name Role Phone Unavailable Primary Care Provider [...] Treatment Not on file [address] [place] [address]
--- OUTSIDE RECORDS SUMMARY | 2025-02-21 10:38 | XMS_ITS | Clinical Summary ---
Author Organization [facility] Address [address] [place] [address] Care Team Providers Care Solar Sales Manager Name Role Phone Pcp, No Primary Care [...] patient's age to complete this topic Insurance [facility] Care Teams Solar Sales Manager Relationship Specialty Start Date End Date Pcp, No PCP - General General Medicine 05/12/21
--- OUTSIDE RECORDS SUMMARY | 2025-02-21 10:38 | XMS_ITS | Clinical Summary ---
Author Organization [facility] [address] [place] [address] [place] [phone] Phone Care Team Providers Care On Site Services Specialist Name Role Phone Alonso Daly MD Primary Care Provider [phone] Allergies Active Allergy Reactions Criticality Noted Date Comments Metoclopramide Hcl Wheezing 01/11/2021 Given in ER for n/v; allergic reaction on 01/06/21: given benedryl for sob. Medications levETIRAcetam (KEPPRA) 750 mg tablet TAKE 1 TABLET BY MOUTH TWICE A DAY 180 tablet 03/15/20 24 Active diclofenac (VOLTAREN) 75 mg EC tablet Take 1 Tablet by mouth 2 times daily. 12/05/19 24 Active albuterol HFA (PROAIR HFA ; PROVENTIL HFA ; VENTOLIN HFA) 90 mcg/actuation inhaler Inhale 2 Puffs into the lungs every 4 hours as needed for Cough or Wheezing. 01/05/20 24 Active clotrimazole-be tamethasone (LOTRISONE) 1-0.05 % creamIndication s:Acute candidiasis of vulva and vagina APPLY SPARINGLY TO AFFECTED AREA TWICE A DAY FOR UP TO 2 WEEKS 30 g 1 05/03/19 25 Active omeprazole (PriLOSEC) [address] capsule TAKE 1 CAPSULE BY MOUTH EVERY DAY 90 capsule 05/08/19 25 Active ipratropium-alb uteroL (Combivent Respimat) 20-100 mcg/actuation inhaler INHALE 1 PUFF INTO THE LUNGS 4 TIMES DAILY. 1 each 2 06/04/19 25 Active aspirin 81 mg EC tablet TAKE 1 TABLET BY MOUTH EVERY DAY 90 tablet 1 07/30/19 25 Active atorvastatin (LIPITOR) 40 mg tablet Take 1 tablet (40 mg total) by mouth 1 (one) time each day. 90 tablet 1 01/01/20 25 Active budesonide-form oteroL (Symbicort) 160-4.5 mcg/actuation inhaler Inhale 2 puffs by mouth 2 (two) times a day. Rinse mouth with water after use to reduce aftertaste and incidence of candidiasis. Do not swallow. 10.2 each 2 01/01/20 25 Active cyclobenzaprine (FLEXERIL) 5 mg tablet TAKE 1 TABLET BY MOUTH AT BEDTIME NEEDED FOR MUSCLE SPASMS. 90 tablet 1 01/29/20 25 Active cyclobenzaprine (FLEXERIL) 5 mg tablet Take 1 tablet (5 mg total) by mouth at bedtime as needed for muscle spasms. 30 tablet 01/01/20 25 025 Discontinued Active Problems Problem Noted Date Diagnosed Date COVID-19 virus detected 04/16/2020 Overview (03/20/2024): Diagnosed 04/07/20 Symptoms loss sense of taste and smell Encounters Date Type Department Care Team Description 02/03/2025 Telephone Adult [address] [phone] Alonso Daly MD 12/31/2024 1:47 PM EDT - 12/31/2024 11:59 PM EDT Hospital Encounter [address] [phone] Left shoulder tendinitis Discharge Disposition: Home or Self Care 12/31/2024 1:30 PM EDT Office Visit Adult Medicine [address] [phone] Patricia Thomas PA Left shoulder tendinitis (Primary Dx); TIA (transient ischemic attack); Mild intermittent asthma without complication; Seizure disorder (CMS/HCC V24, CMS/HCC V28) 12/30/2024 Telephone Adult Medicine [address] [phone] Alonso Daly MD from Last 3 Months [...] History Medical History Date Comments Seizure disorder (CMS/HCC V2 4, CMS/HCC V28) 11/25/2016 DX:Seizure disorder (HCC); C OMMENT: Follows with neurology had 24 hour EEG in [place] and MRI, convulsive during c section Anxiety 12/06/2016 DX:Anxiety 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 DX:Fibroa denoma of breast; COMMENT: S/p biopsy 03/2017 Chlamydia contact, treated 04/2020 DX:Ch lammylaia contact, treated; COMMENT: 04/2020, 05/2020 ASCUS with [...] Care Team (Late st Contact Info) Description 05/16/2025 4:00 PM EST Office Visit Adult Medicine [address] [phone] lAonso Daly MD [address] [place] [address] 06/10/2025 3:30 PM EST Office Visit Obstetrics and Gynecology - [address] [phone] Annmarie Berry CNM [address] [place] [phone] Health Maintenance Due Date Last Done Comments [...] Signed Date: 12/31/2024 18:58 ET Workstation ID: [id number] Transcribed By: Self Edit Transcribed Date: 12/31/2024 [...] Signed Date: 12/31/2024 18:58 ET Workstation ID: [id number] Transcribed By: Self Edit Transcribed Date: 12/31/2024 18:57 ET us Patricia GARCIA IMG XR PROCEDURES Final Result * Pap smear (11/16/2023) 11/16/2023 Narrative HISTORICAL TESTING LAB RESULTING AGENCY - 11/24/2023 10:01 AM EDT [id number] THINPREP PAP, IMAGED: ATYPICAL SQUAMOUS CELLS OF [...] Final Result * Hepatitis C Screening (01/20/2023) Pathologist [facility] Hepatitis C Screening abstracted Historical Provider HEALTH MAINTENANCE Final Result * (ABNORMAL) Lipid panel (01/20/2023) Pathologist [facility] LDL/HDL Ratio 4 0 - 4 Triglycerides 61 mg/dL Cholesterol 162 0 - 200 mg/dL HDL 47 >=40 mg/dL LDL Cholesterol 103(A) 0 - 100 mg/dL Blood Venous blood specimen / Unknown Historical Provider LAB BLOOD ORDERABLES Alexandria charles Result from Last 3 Months or Most Recently Relevant to Health Maintenance Insurance [facility] [place] [address] Care Teams On Site Services Specialist Relationship Specialty Start Date End Date Alonso Daly MD [address] [place] [address] PCP - General Internal Medicine 09/29/21
== END 2025-02-21 09:52 | disposition home or self-care (01) ==
LOC: HO.HSM 09:25
PROVIDERS: Visit Provider Registered Nurse
DX: G40.909 Epilepsy, unspecified, not intractable, without status epilepticus (principal); G40.409 Other generalized epilepsy and epileptic syndromes, not intractable, without status epilepticus; F41.9 Anxiety disorder, unspecified; G43.909 Migraine, unspecified, not intractable, without status migrainosus
CPT/HCPCS: 99214

== ENCOUNTER → 2025-02-21 09:24 | Outpatient (BNVA) | payer OTHER, SELFPAY | PROVIDERS: Visit Provider Registered Nurse | DX: G40.409 Other generalized epilepsy and epileptic syndromes, not intractable, without status epilepticus (principal); G43.909 Migraine, unspecified, not intractable, without status migrainosus; F41.9 Anxiety disorder, unspecified; Z79.899 Other long term (current) drug therapy; Z79.01 Long term (current) use of anticoagulants | CPT/HCPCS: 99212 ==